=== PATIENT | female | born 1970 | race Caucasian/White ===

== ENCOUNTER → 2017-11-03 | Outpatient (CLI) | payer OTHER ==
--- NOTE | 2017-11-03 09:42 | US ---
EXAMINATION TYPE: US abdomen limited DATE OF EXAM: 11/03/2017 COMPARISON: NONE CLINICAL HISTORY: R10.11 RT Upper Quad Pain. EXAM MEASUREMENTS: Liver Length: 12.1 cm Gallbladder Wall: 0.1 cm CBD: 0.2 cm Right Kidney: 9.2 x 3.8 x 4.1 cm Pancreas: wnl Liver: wnl Gallbladder: wnl Evidence for sonographic Gilmore's sign: No CBD: wnl Right Kidney: wnl IMPRESSION: No distinct abnormality appreciated.
== END | disposition home or self-care (01) ==
LOC: RADUSWWP 08:56
PROVIDERS: ATTEND Family Medicine
DX: R10.11 Right upper quadrant pain (principal)
CPT/HCPCS: 76705

== ENCOUNTER → 2017-12-02 | Outpatient (CLI) | payer OTHER ==
--- NOTE | 2017-12-03 10:03 | MM ---
Reason for exam: screening (asymptomatic). Last mammogram was performed 2 years and 1 month ago. History: Family history of breast cancer in maternal grandmother at age 80, breast cancer in maternal aunt at age 50, and breast cancer in maternal cousin at age 46. Physical Findings: A clinical breast exam by your physician is recommended on an annual basis and results should be correlated with mammographic findings. MG 3D Screening Mammo W/Cad Bilateral CC and MLO view(s) were taken. Prior study comparison: November 02, 2015, mammogram. The breast tissue is heterogeneously dense. This may lower the sensitivity of mammography. There is no discrete abnormality. ASSESSMENT: Negative, BI-RAD 1 RECOMMENDATION: Routine screening mammogram of both breasts in 1 year.
== END | disposition home or self-care (01) ==
LOC: RADMAMWWP 10:05
PROVIDERS: ATTEND Family Medicine
DX: Z12.31 Encounter for screening mammogram for malignant neoplasm of breast (principal)
CPT/HCPCS: 77063; 77067

== ENCOUNTER 2018-02-05 13:27 | Emergency (ER) | payer OTHER ==
[2018-02-05] MEDS ORDERED: ONDANSETRON 4 MG/2 ML VIAL IVP STA (13:44)
[2018-02-05] MEDS ORDERED: RX INFO: IV CONTRAST WAS GIVEN 1 EACH MISC MISCELLANE PRN (13:44)
[2018-02-05] MEDS ORDERED: PANTOPRAZOLE 40 MG/10 ML VIAL IVP STA (13:44)
[2018-02-05] MEDS ORDERED: SODIUM CHLORIDE 0.9% 1,000 ML IV STA ×2 (13:44)
--- NOTE | 2018-02-05 13:48 | ED ---
Abdominal Pain HPI - General Chief Complaint: Abdominal Pain Stated Complaint: abdominal pain Time Seen by Provider: 02/05/18 13:36 Source: patient Mode of arrival: ambulatory Limitations: no limitations - History of Present Illness Initial Comments: This 47-year-old white female presents with a complaint of some abdominal pain. She states that she has had intermittent abdominal pain for the last 3 months. She had a gallbladder ultrasound done 3 months ago which was normal. It became more severe in the last 2 days. He previously was just in the right upper quadrant and now it seems to be diffuse throughout the abdomen. It is associated with some nausea but no vomiting. She denies any actual diarrhea but has had some whitish stools over the past one day. She denies any fevers but has had occasional chills. She states that the pain is significantly resolved at this time but will come in waves. She states that it is very severe when it does occur. She states that when she lays down flat she has a bubbling type of sensation in her chest. She denies any other complaints or modifying factors. She feels somewhat dehydrated. - Related Data Previous Rx's Medication Instructions Recorded Ciprofloxacin HCl [Cipro] 500 mg PO Q12HR #20 tablet 02/05/18 Ondansetron [Zofran ODT] 8 mg PO Q8HR PRN #12 tab 02/05/18 metroNIDAZOLE [Flagyl] 500 mg PO BID #20 tab 02/05/18 traMADol HCl [Ultram] 50 - 100 mg PO Q6H PRN #15 tab 02/05/18 Allergies Allergy/AdvReac Type Severity Reaction Status Date / Time No Known Allergies Allergy Verified 02/05/18 13:59 Review of Systems ROS Statement: Those systems with pertinent positive or pertinent negative responses have been documented in the HPI. ROS Other: All systems not noted in ROS Statement are negative. Past Medical History Past Medical History: No Reported History History of Any Multi-Drug Resistant Organisms: None Reported Past Surgical History: Section, Tubal Ligation Past Psychological History: No Psychological Hx Reported Smoking Status: Never smoker Past Alcohol Use History: None Reported Past Drug Use History: None Reported General Exam - General Exam Comments Initial Comments: GENERAL: The patient is well nourished and well hydrated. VITAL SIGNS: Heart rate, blood pressure, respiratory rate reviewed as recorded in nurse's notes. EYES: Pupils are round and reactive. Extraocular movements are intact. No conjunctival / lid redness or swelling. ENT: No external evidence of injury, swelling, or ecchymosis. Airway is patent. Throat is clear. NECK: Nontender. No swelling or evidence of injury. No subcutaneous emphysema. Trachea is midline. No thyroid mass. HEART: Regular rate and rhythm. Good peripheral pulses. LUNGS/CHEST: Breath sounds clear and equal bilaterally. No rales, rhonchi, or wheezes. No ecchymosis, subcutaneous emphysema, or tenderness. ABDOMEN: There is mild diffuse abdominal tenderness. No palpable masses or organomegaly. No peritoneal signs. No abdominal wall swelling or ecchymosis. EXTREMITIES: No extremity tenderness. Normal muscle tone and function. No thoracolumbar tenderness. NEUROLOGIC: Sensation is grossly intact. Cranial nerve exam reveals face is symmetrical, tongue is midline, speech is clear. SKIN: No abrasions or ecchymosis is noted. No induration or masses noted. PSYCHIATRIC: Alert and oriented. Appropriate behavior and judgment. Limitations: no limitations Course Vital Signs 02/05/18 13:29 Temperature 99.6 F Pulse Rate 104 H Respiratory 20 Rate Blood Pressure 127/71 O2 Sat by Pulse 98 Oximetry Medical Decision Making - Medical Decision Making The patient was seen and examined. All diagnostics were reviewed. She was thoroughly hydrated. She also receives some Protonix and Zofran intravenously. The laboratories reviewed and does show slight elevation of the lipase. She may have a slight pancreatitis and states that she has had occasional pain in the midepigastric region but this is not worse with food intake. The computed tomography scan of the abdomen and pelvis does show evidence of a descending mild colitis. This more likely is the cause of her symptoms. The patient has had this for a fairly prolonged period of time and it is felt as though she may benefit from some antibiotic treatment. In addition, the computed tomography scan did show bilateral small her ovarian cysts. It is felt as though this is less likely the cause of her symptoms. Nevertheless, she appears well on recheck and it is felt as though she is stable for discharge. Gastroenterology referral will be given. - Lab Data Result diagrams: 02/05/18 14:01 02/05/18 14:01 Lab Results 02/05/18 02/05/18 02/05/18 Range/Units 14:01 14:01 14:01 WBC 6.5 (3.8-10.6) k/uL RBC 4.58 (3.80-5.40) m/uL Hgb 13.0 (11.4-16.0) gm/dL Hct 39.9 (34.0-46.0) % MCV 87.1 (80.0-100.0) fL MCH 28.3 (25.0-35.0) pg MCHC 32.5 (31.0-37.0) g/dL RDW 13.0 (11.5-15.5) % Plt Count 198 (150-450) k/uL Neutrophils % 84 % Lymphocytes % 9 % Monocytes % 6 % Eosinophils % 1 % Basophils % 0 % Neutrophils # 5.5 (1.3-7.7) k/uL Lymphocytes # 0.6 L (1.0-4.8) k/uL Monocytes # 0.4 (0-1.0) k/uL Eosinophils # 0.1 (0-0.7) k/uL Basophils # 0.0 (0-0.2) k/uL PT 10.2 (9.0-12.0) sec INR 1.0 (<1.2) APTT 22.5 (22.0-30.0) sec Sodium 141 (137-145) mmol/L Potassium 4.1 (3.5-5.1) mmol/L Chloride 103 (98-107) mmol/L Carbon Dioxide 26 (22-30) mmol/L Anion Gap 12 mmol/L BUN 10 (7-17) mg/dL Creatinine 0.70 (0.52-1.04) mg/dL Est GFR (CKD-EPI)AfAm >90 (>60 ml/min/1.73 sqM) Est GFR (CKD-EPI)NonAf >90 (>60 ml/min/1.73 sqM) Glucose 96 (74-99) mg/dL Calcium 9.3 (8.4-10.2) mg/dL Total Bilirubin 0.4 (0.2-1.3) mg/dL AST 19 (14-36) U/L ALT 30 (9-52) U/L Alkaline Phosphatase 53 (38-126) U/L Total Protein 6.7 (6.3-8.2) g/dL Albumin 4.2 (3.5-5.0) g/dL Amylase 106 (30-110) U/L Lipase 570 H (23-300) U/L Urine Color Urine Appearance (Clear) Urine pH (5.0-8.0) Ur Specific [place] (1.001-1.035) Urine Protein (Negative) Urine Glucose (UA) (Negative) Urine Ketones (Negative) Urine Blood (Negative) Urine Nitrite (Negative) Urine Bilirubin (Negative) Urine Urobilinogen (<2.0) mg/dL Ur Leukocyte Esterase (Negative) 02/05/18 Range/Units 14:11 WBC (3.8-10.6) k/uL RBC (3.80-5.40) m/uL Hgb (11.4-16.0) gm/dL Hct (34.0-46.0) % MCV (80.0-100.0) fL MCH (25.0-35.0) pg MCHC (31.0-37.0) g/dL RDW (11.5-15.5) % Plt Count (150-450) k/uL Neutrophils % % Lymphocytes % % Monocytes % % Eosinophils % % Basophils % % Neutrophils # (1.3-7.7) k/uL Lymphocytes # (1.0-4.8) k/uL Monocytes # (0-1.0) k/uL Eosinophils # (0-0.7) k/uL Basophils # (0-0.2) k/uL PT (9.0-12.0) sec INR (<1.2) APTT (22.0-30.0) sec Sodium (137-145) mmol/L Potassium (3.5-5.1) mmol/L Chloride (98-107) mmol/L Carbon Dioxide (22-30) mmol/L Anion Gap mmol/L BUN (7-17) mg/dL Creatinine (0.52-1.04) mg/dL Est GFR (CKD-EPI)AfAm (>60 ml/min/1.73 sqM) Est GFR (CKD-EPI)NonAf (>60 ml/min/1.73 sqM) Glucose (74-99) mg/dL Calcium (8.4-10.2) mg/dL Total Bilirubin (0.2-1.3) mg/dL AST (14-36) U/L ALT (9-52) U/L Alkaline Phosphatase (38-126) U/L Total Protein (6.3-8.2) g/dL Albumin (3.5-5.0) g/dL Amylase (30-110) U/L Lipase (23-300) U/L Urine Color Yellow Urine Appearance Clear (Clear) Urine pH 5.5 (5.0-8.0) Ur Specific [place] 1.024 (1.001-1.035) Urine Protein Trace H (Negative) Urine Glucose (UA) Negative (Negative) Urine Ketones 3+ H (Negative) Urine Blood Negative (Negative) Urine Nitrite Negative (Negative) Urine Bilirubin Negative (Negative) Urine Urobilinogen <2.0 (<2.0) mg/dL Ur Leukocyte Esterase Negative (Negative) Disposition Clinical Impression: Abdominal pain, Nausea, Colitis, Pancreatitis, Ovarian cyst Disposition: HOME SELF-CARE Condition: Good Instructions: Abdominal Pain (ED), Colitis (ED), Ovarian Cyst (ED), Pancreatitis (ED) Prescriptions: Ciprofloxacin HCl [Cipro] 500 mg PO Q12HR #20 tablet metroNIDAZOLE [Flagyl] 500 mg PO BID #20 tab Ondansetron [Zofran ODT] 8 mg PO Q8HR PRN #12 tab PRN Reason: Nausea traMADol HCl [Ultram] 50 - 100 mg PO Q6H PRN #15 tab PRN Reason: Pain Is patient prescribed a controlled substance at d/c from ED?: Yes If prescribed controlled substance>3 days was MAPS reviewed?: No When asked, does pt state using other controlled substances?: No Referrals: Oumar Ferreira DO [Primary Care Provider] - 1-2 days Arcelia Santos MD [STAFF PHYSICIAN] - 1-2 days Time of Disposition: 15:16
[2018-02-05 14:22] LABS: Basophils % (A) 0 %; Eosinophils # (A) 0.1 k/uL (0-0.7); Eosinophils % (A) 1 %; HCT 39.9 % (34.0-46.0); Lymphocytes # (A) 0.6 k/uL (1.0-4.8); Lymphocytes % (A) 9 %; MCH 28.3 pg (25.0-35.0); MCHC 32.5 g/dL (31.0-37.0); MCV 87.1 fL (80.0-100.0); Mean Platelet Volume 7.2; Monocytes # (A) 0.4 k/uL (0-1.0); Monocytes % (A) 6 %; Neutrophils # (A) 5.5 k/uL (1.3-7.7); Neutrophils % (A) 84 %; Platelet Count 198 k/uL (150-450); RBC 4.58 m/uL (3.80-5.40); WBC 6.5 k/uL (3.8-10.6)
[2018-02-05 14:28] LABS: Partial Thromboplastin Time 22.5 sec (22.0-30.0); Prothrombin Time 10.2 sec (9.0-12.0)
[2018-02-05 14:31] LABS: ALT 30 U/L (9-52); AST 19 U/L (14-36); Albumin 4.2 g/dL (3.5-5.0); Alkaline Phosphatase 53 U/L (38-126); Amylase 106 U/L (30-110); Anion Gap 12 mmol/L; Blood Urea Nitrogen 10 mg/dL (7-17); Calcium 9.3 mg/dL (8.4-10.2); Carbon Dioxide 26 mmol/L (22-30); Chloride 103 mmol/L (98-107); Glucose 96 mg/dL (74-99); Lipase 570 U/L (23-300); Potassium 4.1 mmol/L (3.5-5.1); Sodium 141 mmol/L (137-145); Total Bilirubin 0.4 mg/dL (0.2-1.3); Total Protein 6.7 g/dL (6.3-8.2)
[2018-02-05 14:36] LABS: Appearance,Urine Clear (Clear); Bilirubin,Urine Negative (Negative); Blood,Urine Negative (Negative); Color,Urine Yellow; Glucose,Urine (UA) Negative (Negative); Ketones,Urine 3+ (Negative); Leukocyte Esterase,Urine Negative (Negative); Nitrite,Urine Negative (Negative); PH, Urine 5.5 (5.0-8.0); Protein,Urine Trace (Negative); Specific Gravity,Urine 1.024 (1.001-1.035); Urobilinogen,Urine <2.0 mg/dL (<2.0)
--- NOTE | 2018-02-05 14:57 | CT ---
EXAMINATION TYPE: CT abdomen pelvis w con DATE OF EXAM: 02/05/2018 COMPARISON: NONE INDICATION: Abdominal pain DLP: 1355 mGycm, Automated exposure control for dose reduction was used. CONTRAST: 100 ml mL of Isovue 300. Study performed without Oral Contrast TECHNIQUE: Axial images were obtained from above the diaphragm to the pubic rami in the axial plane a t 5 mm thick sections. Reconstructed images are reviewed on the computer in the coronal plane. FINDINGS: Limited CT sections are obtained the lung bases. The lung bases are clear. CT ABDOMEN: Liver: Normal Spleen: Normal Pancreas: Normal Adrenal glands: The adrenal glands are normal. Gallbladder: Normal Kidneys: No masses are evident. No hydronephrosis is present. No cysts are present. Delayed images were obtained through the kidneys, which remain unremarkable. Aorta: Vascular calcification is within the aorta. Inferior vena cava: Normal. CT PELVIS: Loops of bowel within the abdomen and pelvis are normal. There is diffuse thickening within the d escending colon. Correlate for mild colitis Appendix: Normal as visualized. Urinary bladder: Normal. Genitourinary structures: There is a 1.8 cm cyst on the right ovary. Uterus appears unremarkable. A 2 .0 cm cyst may be on the left ovary. Osseous structures: No suspicious lytic or sclerotic lesions. IMPRESSIONS: 1. Mild wall thickening through the descending colon region. Correlate for mild colitis 2. Bilateral ovarian cysts.
[2018-02-05 15:17] VITALS: BP 113/56; PULSE 82; RESP 18
[2018-02-05 15:44] VITALS: TEMP 98.9
== END 2018-02-05 15:44 | disposition home or self-care (01) ==
LOC: EC 13:27
DX: K52.9 Noninfective gastroenteritis and colitis, unspecified (principal); K85.90 Acute pancreatitis without necrosis or infection, unspecified; N83.201 Unspecified ovarian cyst, right side; N83.202 Unspecified ovarian cyst, left side; Z98.51 Tubal ligation status
CPT/HCPCS: 99284; 96374; 96375; 96361 ×2; 36415; 80053; 82150; 83690; 85025; 85610; 85730; 81003; 74177; J2405; C9113; Q9967

== ENCOUNTER → 2018-02-12 | Outpatient (CLI) | payer OTHER ==
[2018-02-12 14:33] LABS: Basophils % (A) 1 %; Eosinophils # (A) 0.1 k/uL (0-0.7); Eosinophils % (A) 1 %; HGB 14.3 gm/dL (11.4-16.0); Lymphocytes # (A) 2.1 k/uL (1.0-4.8); Lymphocytes % (A) 29 %; MCH 29.5 pg (25.0-35.0); MCHC 34.1 g/dL (31.0-37.0); MCV 86.6 fL (80.0-100.0); Mean Platelet Volume 7.1; Monocytes # (A) 0.4 k/uL (0-1.0); Monocytes % (A) 5 %; Neutrophils # (A) 4.5 k/uL (1.3-7.7); Neutrophils % (A) 62 %; Platelet Count 268 k/uL (150-450); RBC 4.85 m/uL (3.80-5.40); RDW 12.9 % (11.5-15.5); WBC 7.2 k/uL (3.8-10.6)
[2018-02-12 14:41] LABS: ALT 35 U/L (9-52); AST 25 U/L (14-36); Albumin 4.4 g/dL (3.5-5.0); Alkaline Phosphatase 49 U/L (38-126); Amylase 84 U/L (30-110); Anion Gap 14 mmol/L; Blood Urea Nitrogen 13 mg/dL (7-17); Calcium 9.7 mg/dL (8.4-10.2); Carbon Dioxide 24 mmol/L (22-30); Chloride 103 mmol/L (98-107); Cholesterol 145 mg/dL (<200); Glucose 86 mg/dL (74-99); HDL Cholesterol 58 mg/dL (40-60); LDL Cholesterol,Calculated 69 mg/dL (0-99); Lipase 254 U/L (23-300); Potassium 4.6 mmol/L (3.5-5.1); Sodium 141 mmol/L (137-145); Total Bilirubin 0.5 mg/dL (0.2-1.3); Triglycerides 91 mg/dL (<150)
[2018-02-12 16:27] LABS: Erythrocyte Sedimentation Rate 8 mm/hr (0-20)
== END | disposition home or self-care (01) ==
LOC: LABWHC1 13:44
PROVIDERS: ATTEND Family Medicine
DX: E78.4 Other hyperlipidemia (principal); R10.30 Lower abdominal pain, unspecified
CPT/HCPCS: 36415; 80053; 80061; 82150; 83690; 85025; 85652

== ENCOUNTER → 2018-04-25 | Outpatient (CLI) | payer OTHER ==
--- NOTE | 2018-04-25 15:42 | XR ---
EXAMINATION TYPE: XR foot complete RT DATE OF EXAM: 04/25/2018 CLINICAL HISTORY: Neuropathy per order. Visible bump with pain and swelling. TECHNIQUE: Frontal, lateral, and oblique images of the left foot are obtained. COMPARISON: None FINDINGS: There is no acute fracture/dislocation evident in the left foot. The joint spaces in the left foot appear within normal limits. Moderate size inferior calcaneal spur is present . Mild diffus e subcutaneous edema is seen in the overlying soft tissue plantar and lateral aspects. IMPRESSION: As above. Consider MRI to further evaluate soft tissue mass.
== END | disposition home or self-care (01) ==
LOC: RADXRMAIN 14:29
PROVIDERS: ATTEND Family Medicine
DX: M77.31 Calcaneal spur, right foot (principal); R60.0 Localized edema; G62.9 Polyneuropathy, unspecified

== ENCOUNTER → 2018-09-25 | Outpatient (CLI) | payer OTHER ==
[2018-09-25 17:44] LABS: Progesterone 0.5 ng/mL
[2018-09-25 21:31] LABS: ACTH 19.8 pg/mL (0.00-45.99)
== END | disposition home or self-care (01) ==
LOC: LABWHC1 08:59
PROVIDERS: ATTEND Family Medicine
DX: N64.52 Nipple discharge (principal)
CPT/HCPCS: 36415; 82024; 82533; 82672; 83001; 83002; 84144; 84443

== ENCOUNTER → 2019-01-26 | Outpatient (CLI) | payer BC ==
--- NOTE | 2019-01-27 09:11 | MM ---
Reason for exam: screening (asymptomatic). Last mammogram was performed 1 year and 2 months ago. History: Family history of breast cancer in maternal grandmother at age 80, breast cancer in maternal aunt at age 50, and breast cancer in maternal cousin at age 46. Physical Findings: A clinical breast exam by your physician is recommended on an annual basis and results should be correlated with mammographic findings. MG 3D Screening Mammo W/Cad Bilateral CC and MLO view(s) were taken. Prior study comparison: December 02, 2017, bilateral MG 3d screening mammo w/cad. November 02, 2015, mammogram. The breast tissue is heterogeneously dense. This may lower the sensitivity of mammography. Finding: There are vascular calcifications in the upper outer quadrant, posterior position of both breasts. There is no discrete abnormality. ASSESSMENT: Benign, BI-RAD 2 RECOMMENDATION: Routine screening mammogram of both breasts in 1 year.
== END | disposition home or self-care (01) ==
LOC: RADMAMWWP 10:46
PROVIDERS: ATTEND Family Medicine
DX: Z12.31 Encounter for screening mammogram for malignant neoplasm of breast (principal)
CPT/HCPCS: 77063; 77067

== ENCOUNTER → 2019-01-27 | Outpatient (CLI) | payer BC ==
[2019-01-27 09:43] LABS: Basophils # (A) 0.1 k/uL (0-0.2); Basophils % (A) 1 %; Eosinophils # (A) 0.1 k/uL (0-0.7); Eosinophils % (A) 2 %; HCT 42.8 % (34.0-46.0); HGB 13.7 gm/dL (11.4-16.0); Lymphocytes # (A) 1.4 k/uL (1.0-4.8); Lymphocytes % (A) 22 %; MCH 28.9 pg (25.0-35.0); MCHC 32.1 g/dL (31.0-37.0); MCV 90.1 fL (80.0-100.0); Mean Platelet Volume 6.9; Monocytes # (A) 0.3 k/uL (0-1.0); Monocytes % (A) 5 %; Neutrophils # (A) 4.6 k/uL (1.3-7.7); Neutrophils % (A) 70 %; Platelet Count 219 k/uL (150-450); RBC 4.74 m/uL (3.80-5.40); RDW 13.3 % (11.5-15.5); WBC 6.6 k/uL (3.8-10.6)
[2019-01-27 11:46] LABS: Erythrocyte Sedimentation Rate 8 mm/hr (0-20)
[2019-01-27 18:09] LABS: Albumin 4.4 g/dL (3.80-4.90); Anion Gap 8.5 mmol/L (4.00-12.00); C Reactive Protein 0.8 mg/dL (0.0-0.8); Calcium 9.4 mg/dL (8.7-10.3); Carbon Dioxide 24.5 mmol/L (21.6-31.8); Globulin 2.2 g/dL (1.6-3.3); Potassium 4.4 mmol/L (3.5-5.5); Total Bilirubin 0.6 mg/dL (0.3-1.2); Total Protein 6.6 g/dL (6.2-8.2)
[2019-01-27 18:16] LABS: T4, Free (Free Thyroxine) 1.1 ng/dL (0.80-1.80)
== END | disposition home or self-care (01) ==
LOC: LABWHC1 08:57
PROVIDERS: ATTEND Family Medicine
DX: Z00.00 Encounter for general adult medical examination without abnormal findings (principal); R19.4 Change in bowel habit; R10.11 Right upper quadrant pain
CPT/HCPCS: 36415; 80053; 80061; 83516; 84439; 84443; 85025; 85652; 86140

== ENCOUNTER 2019-09-25 12:28 | Observation (INO) | payer BC ==
[2019-09-25] MEDS ORDERED: SODIUM CHLORIDE 0.9% 1,000 ML IV STA (12:47)
--- NOTE | 2019-09-25 12:51 | ED ---
General Adult HPI - General Chief complaint: Neuro Symptoms/Deficit Stated complaint: Memory loss Time Seen by Provider: 09/25/19 12:39 Source: patient, RN notes reviewed, old records reviewed Mode of arrival: ambulatory Limitations: no limitations - History of Present Illness Initial comments: 49-year-old female presents for evaluation of confusion, and altered consciousness. Patient awoke this morning at 0 920 she attempted to use a computer but could not manipulate the device. She had looked on her Facebook page and was confused by the people or friends. Her states these are close friends and that not knowing the names is abnormal. Patient has no chronic medical conditions, no hypertension, no diabetes, no hyperlipidemia. She is family history of CVA. No seizure disorder reported. She feels normal at the time my evaluation she is alert and oriented. No complaints. - Related Data Previous Rx's Medication Instructions Recorded Ciprofloxacin HCl [Cipro] 500 mg PO Q12HR #20 tablet 02/05/18 Ondansetron [Zofran ODT] 8 mg PO Q8HR PRN #12 tab 02/05/18 metroNIDAZOLE [Flagyl] 500 mg PO BID #20 tab 02/05/18 traMADol HCl [Ultram] 50 - 100 mg PO Q6H PRN #15 tab 02/05/18 Allergies Allergy/AdvReac Type Severity Reaction Status Date / Time No Known Allergies Allergy Verified 09/25/19 12:37 Review of Systems ROS Statement: Those systems with pertinent positive or pertinent negative responses have been documented in the HPI. ROS Other: All systems not noted in ROS Statement are negative. Past Medical History Past Medical History: No Reported History History of Any Multi-Drug Resistant Organisms: None Reported Past Surgical History: Section, Tubal Ligation Past Psychological History: No Psychological Hx Reported Smoking Status: Never smoker Past Alcohol Use History: None Reported Past Drug Use History: None Reported General Exam Limitations: no limitations General appearance: alert, in no apparent distress Head exam: Present: atraumatic, normocephalic Eye exam: Present: normal appearance, PERRL, EOMI ENT exam: Present: normal exam Neck exam: Present: normal inspection. Absent: tenderness, meningismus Respiratory exam: Present: normal lung sounds bilaterally. Absent: respiratory distress, wheezes, rales Cardiovascular Exam: Present: regular rate, normal rhythm GI/Abdominal exam: Present: soft. Absent: distended, tenderness, guarding Extremities exam: Present: normal inspection, normal capillary refill. Absent: pedal edema Back exam: Present: normal inspection Neurological exam: Present: alert, oriented X3, CN II-XII intact, normal gait, other (no ataxia, normal [id number] bilaterally, normal [id number], negative Romberg). Absent: motor sensory deficit Psychiatric exam: Present: normal affect, normal mood Skin exam: Present: warm, dry, intact. Absent: cyanosis, diaphoretic Course Vital Signs 09/25/19 09/25/19 12:34 14:50 Temperature 98.8 F Pulse Rate 93 83 Respiratory 18 18 Rate Blood Pressure 115/80 125/71 O2 Sat by Pulse 98 100 Oximetry EKG Findings - EKG Comments: EKG Findings:: EKG: Normal sinus rhythm, sinus arrhythmia, rate is 72, MI interval 144, QRS duration 78, QTC 396, no ischemic changes, no ST segment elevation. Medical Decision Making - Medical Decision Making 49-year-old female otherwise healthy presenting with an episode of confusion, word finding difficulty, inability recognize well-known relations. Patient is returned to baseline with a normal exam, evaluation. Head CT is performed negative for intracranial hemorrhage or mass effect. She has normal electrolytes, normal labs in general. Chest x-ray negative for any acute cardiac primary disease. Patient's symptoms are concerning for TIA, will be kept in observation for further testing, and neurology consultation. Case discussed with admitting physician Dr. Curiel - Lab Data Result diagrams: 09/25/19 12:58 09/25/19 12:58 Lab Results 09/25/19 09/25/19 09/25/19 Range/Units 12:58 12:58 12:58 WBC 8.6 (3.8-10.6) k/uL RBC 4.97 (3.80-5.40) m/uL Hgb 14.6 (11.4-16.0) gm/dL Hct 44.4 (34.0-46.0) % MCV 89.3 (80.0-100.0) fL MCH 29.3 (25.0-35.0) pg MCHC 32.8 (31.0-37.0) g/dL RDW 12.8 (11.5-15.5) % Plt Count 252 (150-450) k/uL Neutrophils % 67 % Lymphocytes % 24 % Monocytes % 6 % Eosinophils % 2 % Basophils % 1 % Neutrophils # 5.7 (1.3-7.7) k/uL Lymphocytes # 2.0 (1.0-4.8) k/uL Monocytes # 0.5 (0-1.0) k/uL Eosinophils # 0.2 (0-0.7) k/uL Basophils # 0.0 (0-0.2) k/uL PT 9.8 (9.0-12.0) sec INR 0.9 (<1.2) APTT 24.3 (22.0-30.0) sec Sodium 139 (137-145) mmol/L Potassium 4.3 (3.5-5.1) mmol/L Chloride 104 (98-107) mmol/L Carbon Dioxide 24 (22-30) mmol/L Anion Gap 11 mmol/L BUN 11 (7-17) mg/dL Creatinine 0.73 (0.52-1.04) mg/dL Est GFR (CKD-EPI)AfAm >90 (>60 ml/min/1.73 sqM) Est GFR (CKD-EPI)NonAf >90 (>60 ml/min/1.73 sqM) Glucose 100 H (74-99) mg/dL Calcium 9.8 (8.4-10.2) mg/dL Total Bilirubin 0.7 (0.2-1.3) mg/dL AST 28 (14-36) U/L ALT 25 (4-34) U/L Alkaline Phosphatase 45 (38-126) U/L Troponin I (0.000-0.034) ng/mL Total Protein 8.0 (6.3-8.2) g/dL Albumin 4.8 (3.5-5.0) g/dL Urine Color Urine Appearance (Clear) Urine pH (5.0-8.0) Ur Specific [place] (1.001-1.035) Urine Protein (Negative) Urine Glucose (UA) (Negative) Urine Ketones (Negative) Urine Blood (Negative) Urine Nitrite (Negative) Urine Bilirubin (Negative) Urine Urobilinogen (<2.0) mg/dL Ur Leukocyte Esterase (Negative) Urine WBC (0-5) /hpf Ur Squamous Epith Cells (0-4) /hpf Urine Bacteria (None) /hpf Urine Mucus (None) /hpf 09/25/19 09/25/19 Range/Units 12:58 12:58 WBC (3.8-10.6) k/uL RBC (3.80-5.40) m/uL Hgb (11.4-16.0) gm/dL Hct (34.0-46.0) % MCV (80.0-100.0) fL MCH (25.0-35.0) pg MCHC (31.0-37.0) g/dL RDW (11.5-15.5) % Plt Count (150-450) k/uL Neutrophils % % Lymphocytes % % Monocytes % % Eosinophils % % Basophils % % Neutrophils # (1.3-7.7) k/uL Lymphocytes # (1.0-4.8) k/uL Monocytes # (0-1.0) k/uL Eosinophils # (0-0.7) k/uL Basophils # (0-0.2) k/uL PT (9.0-12.0) sec INR (<1.2) APTT (22.0-30.0) sec Sodium (137-145) mmol/L Potassium (3.5-5.1) mmol/L Chloride (98-107) mmol/L Carbon Dioxide (22-30) mmol/L Anion Gap mmol/L BUN (7-17) mg/dL Creatinine (0.52-1.04) mg/dL Est GFR (CKD-EPI)AfAm (>60 ml/min/1.73 sqM) Est GFR (CKD-EPI)NonAf (>60 ml/min/1.73 sqM) Glucose (74-99) mg/dL Calcium (8.4-10.2) mg/dL Total Bilirubin (0.2-1.3) mg/dL AST (14-36) U/L ALT (4-34) U/L Alkaline Phosphatase (38-126) U/L Troponin I <0.012 (0.000-0.034) ng/mL Total Protein (6.3-8.2) g/dL Albumin (3.5-5.0) g/dL Urine Color Light Yellow Urine Appearance Cloudy H (Clear) Urine pH 5.5 (5.0-8.0) Ur Specific [place] 1.012 (1.001-1.035) Urine Protein Negative (Negative) Urine Glucose (UA) Negative (Negative) Urine Ketones Negative (Negative) Urine Blood Negative (Negative) Urine Nitrite Negative (Negative) Urine Bilirubin Negative (Negative) Urine Urobilinogen <2.0 (<2.0) mg/dL Ur Leukocyte Esterase Negative (Negative) Urine WBC <1 (0-5) /hpf Ur Squamous Epith Cells 5 H (0-4) /hpf Urine Bacteria Rare H (None) /hpf Urine Mucus Rare H (None) /hpf Disposition Clinical Impression: Transient cerebral ischemia Disposition: ADMITTED IP TO THIS HOSP Condition: Stable Is patient prescribed a controlled substance at d/c from ED?: No Referrals: Lyndon Clinton DO [Primary Care Provider] - 1-2 days Decision to Admit Reason: Admit from EC Decision Date: 09/25/19 Decision Time: 15:09
[2019-09-25 13:24] LABS: Basophils % (A) 1 %; Eosinophils # (A) 0.2 k/uL (0-0.7); Eosinophils % (A) 2 %; HCT 44.4 % (34.0-46.0); HGB 14.6 gm/dL (11.4-16.0); Lymphocytes % (A) 24 %; MCH 29.3 pg (25.0-35.0); MCHC 32.8 g/dL (31.0-37.0); MCV 89.3 fL (80.0-100.0); Mean Platelet Volume 7.4; Monocytes # (A) 0.5 k/uL (0-1.0); Monocytes % (A) 6 %; Neutrophils # (A) 5.7 k/uL (1.3-7.7); Neutrophils % (A) 67 %; Platelet Count 252 k/uL (150-450); RBC 4.97 m/uL (3.80-5.40); RDW 12.8 % (11.5-15.5); WBC 8.6 k/uL (3.8-10.6)
[2019-09-25 13:25] LABS: Appearance,Urine Cloudy (Clear); Bacteria,Urine Rare /hpf; Bilirubin,Urine Negative (Negative); Blood,Urine Negative (Negative); Color,Urine Light Yellow; Glucose,Urine (UA) Negative (Negative); Ketones,Urine Negative (Negative); Leukocyte Esterase,Urine Negative (Negative); Mucus,Urine Rare /hpf; Nitrite,Urine Negative (Negative); PH, Urine 5.5 (5.0-8.0); Protein,Urine Negative (Negative); Specific Gravity,Urine 1.012 (1.001-1.035); Squamous Epithelial Cell,Urine 5 /hpf (0-4); Urobilinogen,Urine <2.0 mg/dL (<2.0); WBC,Urine <1 /hpf (0-5)
[2019-09-25 13:34] LABS: INR 0.9 (<1.2); Partial Thromboplastin Time 24.3 sec (22.0-30.0); Prothrombin Time 9.8 sec (9.0-12.0)
[2019-09-25 13:35] LABS: African American GFR (CKD) >90 (>60 ml/min/1.73 sqM); Albumin 4.8 g/dL (3.5-5.0); Anion Gap 11 mmol/L; Blood Urea Nitrogen 11 mg/dL (7-17); Calcium 9.8 mg/dL (8.4-10.2); Carbon Dioxide 24 mmol/L (22-30); Chloride 104 mmol/L (98-107); Glucose 100 mg/dL (74-99); Non-African American GFR(CKD) >90 (>60 ml/min/1.73 sqM); Sodium 139 mmol/L (137-145); Total Bilirubin 0.7 mg/dL (0.2-1.3)
[2019-09-25 13:36] LABS: ALT 25 U/L (4-34); AST 28 U/L (14-36); Alkaline Phosphatase 45 U/L (38-126); Potassium 4.3 mmol/L (3.5-5.1)
--- NOTE | 2019-09-25 13:55 | CT ---
EXAMINATION TYPE: CT brain wo con DATE OF EXAM: 09/25/2019 COMPARISON: NONE HISTORY: Memory loss CT DLP: 1048.4 mGycm Automated exposure control for dose reduction was used. FINDINGS: Central structures are midline. There is no evidence of hydrocephalus. No acute focal lesion, mass ef fect or midline shift is seen. I do not see evidence of intracranial blood. Visualized portions of the paranasal sinuses and mastoids are clear. There is an exostosis seen arisi ng from the posterior right occipital region. IMPRESSION: NO ACUTE INTRACRANIAL ABNORMALITY.
[2019-09-25] MEDS ORDERED: ASPIRIN 325 MG TAB PO STA (14:32)
--- NOTE | 2019-09-25 14:32 | XR ---
EXAMINATION TYPE: XR chest 2V DATE OF EXAM: 09/25/2019 HISTORY: altered mental status. REFERENCE: NONE. FINDINGS: The lungs are clear. Pleural spaces are clear. The heart is not enlarged. There is a dextro scoliosis in the thoracic spine. IMPRESSION: NO ACUTE INTRATHORACIC ABNORMALITY.
[2019-09-25] MEDS ORDERED: LORazepam 2 MG/ML INJ IV PRN (15:07)
[2019-09-25] MEDS ORDERED: SODIUM CHLORIDE 0.9% 1,000 ML IV SCH (15:15)
[2019-09-25] MEDS: ACETAMINOPHEN TAB 325 MG TAB PO PRN (17:39)
[2019-09-26 06:26] LABS: Cholesterol 190 mg/dL (<200); HDL Cholesterol 51 mg/dL (40-60); LDL Cholesterol,Calculated 96 mg/dL (0-99); Triglycerides 213 mg/dL (<150)
[2019-09-26] MEDS: ASPIRIN 325 MG TAB PO SCH (08:33)
--- NOTE | 2019-09-26 08:41 | P.HPIM ---
History of Present Illness this is a pleasant 49 years old female with no past medical history other than tubal ligation, never smoked. She presents with one of our episodes of nausea and inability to eat and recognize names. Patient was helping her finding his check in her tablets yesterday when she found out she could not reports and when she went to the patient spoke she could not recognize her friends and family, although she knew the feces but she could not treat to remember the names. She got emotional and followed by a headache about 4-5/10 in severity and the back of her head felt like pressure with no visual difficulty, no slurred speech, no weakness or loss of sensation. Patient states at age 22 when she had her baby. She had similar episodes. Patient denies smoking, alcohol or illicit tracts vitals stable. Labs including CBC, BMP, liver enzymes are unremarkable. Troponin is negative.urine analysis is not suspicious of infection. Chest x- ray: No acute process. EKG showing normal sinus rhythm at [address] no [address]an t ST-T changes . CT of the brain: No acute process on admission patient was started on aspirin 325 mg daily and she received a bolus of 1 L of normal saline. Review of Systems CONSTITUTIONAL: No fever, no malaise, no fatigue. HEENT: No recent visual problems or hearing problems. Denied any sore throat. CARDIOVASCULAR: No orthopnea, PND, no palpitations, no syncope. PULMONARY: No shortness of breath, no cough, no hemoptysis. GASTROINTESTINAL: No diarrhea, no nausea, no vomiting, no abdominal pain. Normoactive bowel sounds. NEUROLOGICAL: No headaches, no weakness, no numbness. HEMATOLOGICAL: Denies any bleeding or petechiae. GENITOURINARY: Denies any burning micturition, frequency, or urgency. MUSCULOSKELETAL/RHEUMATOLOGICAL: Denies any joint pain, swelling, or any muscle pain. ENDOCRINE: Denies any polyuria or polydipsia. Past Medical History Past Medical History: No Reported History History of Any Multi-Drug Resistant Organisms: None Reported Past Surgical History: Section, Tubal Ligation Past Psychological History: No Psychological Hx Reported Smoking Status: Never smoker Past Alcohol Use History: None Reported Past Drug Use History: None Reported - Past Family History Mother Family Medical History: Dementia, Diabetes Mellitus Father Family Medical History: CVA/TIA, Diabetes Mellitus, Myocardial Infarction ([place]) Additional Family Medical History / Comment(s): glaucoma Medications and Allergies Home Medications Medication Instructions Recorded Confirmed Type Cider Vinegar [Apple Cider Vinegar] 300 mg PO DAILY 09/25/19 09/25/19 History Allergies Allergy/AdvReac Type Severity Reaction Status Date / Time No Known Allergies Allergy Verified 09/25/19 16:29 Physical Exam Vitals: Vital Signs Temp Pulse Pulse Resp BP BP Pulse Ox 09/26/19 03:48 98.3 F 65 14 119/80 99 09/26/19 03:47 70 16 09/26/19 00:00 98.1 F 70 16 120/77 100 09/25/19 20:00 98.4 F 95 18 115/59 98 09/25/19 17:35 98.0 F 76 16 108/62 98 09/25/19 17:08 98.8 F 89 18 122/74 100 09/25/19 14:50 83 18 125/71 100 09/25/19 12:34 98.8 F 93 18 115/80 98 Intake and Output 09/25/19 09/25/19 09/26/19 14:59 22:59 06:59 Intake Total 1240 120 Output Total 450 Balance 790 120 Intake: Intake, IV Titration 1000 Amount Sodium Chloride 0.9% 1, 1000 000 ml @ 999 mls/hr IV . Q1H1M STA Rx#:[id number] Oral 240 120 Output: Urine 450 Other: Voiding Method Toilet Toilet # Voids 1 2 Weight 74.933 kg 74.933 kg 74.9 kg GENERAL: The patient is alert and oriented x3, not in any acute distress. Well developed, well nourished. HEENT: Pupils are round and equally reacting to light. EOMI. No scleral icterus. No conjunctival pallor. Normocephalic, atraumatic. No pharyngeal erythema. No thyromegaly. CARDIOVASCULAR: S1 and S2 present. No murmurs, rubs, or gallops. PULMONARY: Chest is clear to auscultation, no wheezing or crackles. ABDOMEN: Soft, nontender, nondistended, normoactive bowel sounds. No palpable organomegaly. MUSCULOSKELETAL: No joint swelling or deformity. EXTREMITIES: No cyanosis, clubbing, or pedal edema. NEUROLOGICAL: Gross neurological examination did not reveal any focal deficits. SKIN: No rashes. No petechiae Results CBC & Chem 7: 09/25/19 12:58 12 12:58 Labs: Abnormal Lab Results - Last 24 Hours (Table) 09/25/19 12 Range/Units 12:58 12:58 Glucose 100 H (74-99) mg/dL Urine Appearance Cloudy H (Clear) Ur Squamous Epith Cells 5 H (0-4) /hpf Urine Bacteria Rare H (None) /hpf Urine Mucus Rare H (None) /hpf Thrombosis Risk Factor Assmnt - Choose All That Apply Any of the Below Risk Factors Present?: Yes Each Factor Represents 1 point: Age 41-60 years Other Risk Factors: No Other congenital or acquired thrombophilia - If yes, enter type in comment: No Thrombosis Risk Factor Assessment Total Risk Factor Score: 1 Thrombosis Risk Factor Assessment Level: Low Risk Assessment and Plan Assessment: possible TIA versus other History of tubal ligation Headache Plan: this is a pleasant 49 years old female who presents with TIA. Continue with aspirin. Continue with neuro check. Check echocardiogram, carotid duplex. Call neurology consults Labs and medication were reviewed.. Continue same treatment. Continue with symptomatic treatment. Resume home medication. Monitor lytes and vitals. DVT and GI prophylaxis. Further recommendations of the clinical course of the patient DVT prophylaxis: Subcutaneous heparin GI Prophylaxis: Pepcid PT/OT: Pending Prognosis is guarded
--- NOTE | 2019-09-26 09:04 | US ---
EXAMINATION TYPE: US carotid duplex BILAT DATE OF EXAM: 09/26/2019 COMPARISON: NONE CLINICAL HISTORY: Stenosis. Pt states episode of confusion EXAM MEASUREMENTS: RIGHT: Peak Systolic Velocity (PSV) cm/sec ----- Right CCA: 86.7 ----- Right ICA: 99.5 ----- Right ECA: 86.7 ICA/CCA ratio: 1.1 RIGHT: End Diastole cm/sec ----- Right CCA: 25.2 ----- Right ICA: 45.2 ----- Right ECA: 16.4 LEFT: Peak Systolic Velocity (PSV) cm/sec ----- Left CCA: 73.5 ----- Left ICA: 80.1 ----- Left ECA: 68.0 ICA/CCA ratio: 1.1 LEFT: End Diastole cm/sec ----- Left CCA: 27.4 ----- Left ICA: 35.1 ----- Left ECA: 16.4 VERTEBRALS (direction of flow): Right Vertebral: Antegrade Left Vertebral: Antegrade Rhythm: Normal No significant stenosis seen IMPRESSION: I DO NOT SEE EVIDENCE OF A HEMODYNAMICALLY SIGNIFICANT STENOSIS IN EITHER CAROTID SYSTEM. Criteria for Assigning % of Stenosis / Diameter reduction (Estimation based on the indirect measurements of the internal carotid artery velocities (ICA PSV). 1. Normal (no stenosis)=ICA PSV < 125 cm/s: ratio < 2.0: ICA EDV<40 cm/s. 2. Less than 50% stenosis=ICA PSV < 125 cm/s: ratio < 2.0: ICA EDV<40 cm/s. 3. 50 to 69% stenosis=ICA PSV of 125 to 230 cm/s: ration 2.0 ? 4.0: ICA EDV 40-100 cm/s. 4. Greater than 70% stenosis to near occlusion= ICA PSV > 230 cm/s: ratio > 4.0: ICA EDV > 100 cm/s. 5. Near occlusion= ICA PSV velocities may be low or undetectable: variable ratio and ICA EDV. 6. Total occlusion=unable to detect flow.
--- NOTE | 2019-09-26 10:07 | P.CNNES ---
History of Present Illness Consult date: 09/26/19 Reason for Consult: TIA Chief complaint: confusion History of Present Illness: Ms. Bobbi Castillo is a 49-year-old female who is seen in neurologic consultation on September 26, 2019, via teleneurology. Ms. Castillo reports awakening yesterday morning and signing onto her tablet, to check on her bank account. She reports that she was able to sign onto the tablet without difficulty. She was able to get to the bank account. She then noted difficulty recognizing words. She then went to her Facebook account and thought that she had been hacked. She did not recognize the names of the people were listed as her friends. She pointed this out to her . He looked at her Facebook account and advised her that all of these people she was not recognizing were actually friends of hers. Patient's clicked on pictures of people and she didn't recognize them. She did not recall their names. She says she and her worked on this for an hour or so, she then went to take a shower. After she got out of the shower she felt as if she was back to normal. Patient denied any difficulty with speech, weakness and numbness in extremities, loss of vision and ataxia related to this event. There was no reported facial asymmetry. Patient says she did know her 's name and the names of her children. Patient reports having 1 episode similar to this approximate 28 years ago, after the of her daughter. She was very sleep deprived. She attempted to call her mother on the phone, however could not remember her mother's number. Review of Systems All systems: negative (intentional weight loss) Constitutional: Reports weight loss Eyes: denies blurred vision, denies pain Ears, nose, mouth and throat: Denies headache, Denies sore throat Past Medical History Past Medical History: No Reported History History of Any Multi-Drug Resistant Organisms: None Reported Past Surgical History: Section, Tubal Ligation Past Psychological History: No Psychological Hx Reported Smoking Status: Never smoker Past Alcohol Use History: None Reported Past Drug Use History: None Reported - Past Family History Mother Family Medical History: Dementia, Diabetes Mellitus Father Family Medical History: CVA/TIA, Diabetes Mellitus, Myocardial Infarction ([place]) Additional Family Medical History / Comment(s): glaucoma Medications and Allergies Home Medications Medication Instructions Recorded Confirmed Type Cider Vinegar [Apple Cider Vinegar] 300 mg PO DAILY 09/25/19 09/25/19 History Allergies Allergy/AdvReac Type Severity Reaction Status Date / Time No Known Allergies Allergy Verified 09/25/19 16:29 Physical Examination - Vital Signs Vital Signs: Vital Signs Temp Pulse Pulse Resp BP BP Pulse Ox 09/26/19 03:48 98.3 F 65 14 119/80 99 09/26/19 03:47 70 16 09/26/19 00:00 98.1 F 70 16 120/77 100 09/25/19 20:00 98.4 F 95 18 115/59 98 09/25/19 17:35 98.0 F 76 16 108/62 98 09/25/19 17:08 98.8 F 89 18 122/74 100 09/25/19 14:50 83 18 125/71 100 09/25/19 12:34 98.8 F 93 18 115/80 98 Intake and Output 09/25/19 09/26/19 09/26/19 22:59 06:59 14:59 Intake Total 1240 120 120 Output Total 450 Balance 790 120 120 Intake: Intake, IV Titration 1000 Amount Sodium Chloride 0.9% 1, 1000 000 ml @ 999 mls/hr IV . Q1H1M STA Rx#:[id number] Oral 240 120 120 Output: Urine 450 Other: Voiding Method Toilet Toilet # Voids 1 2 0 Weight 74.933 kg 74.9 kg Gen.: The patient is well-nourished, well-developed. She is seated in the bed. She is no acute distress. HEENT: Head is atraumatic, normocephalic. Fundus not visualized. There is no scleral icterus. Mucous members are moist. Neck: Supple without carotid bruits. Heart: Regular rate and rhythm. Extremities: Without edema Neurological examination Mental status: The patient is awake, alert and oriented 3. Her speech is clear. There is no anomia or dysarthria. Cranial nerves: Pupils are equal, round and reactive to light. Visual fan are full to confrontation. Extra Muscles are intact. There is no nystagmus. Facial sensation is intact. There is no facial asymmetry. Hearing is intact. Uvula and palate are midline. Shoulder shrug is symmetric. Tongue protrudes midline. Motor: Strength is 5/5 throughout. Sensation: Intact to light touch. Coordination: Intact. There is no dysmetria or dysdiadochokinesia. Finger nose finger testing is well performed. Deep tendon reflexes: 2+/4+ throughout Gait: Not assessed Results - Laboratory Findings CBC and BMP: 09/25/19 12:58 09/25/19 12:58 Abnormal Lab Findings: Abnormal Labs 09/25/19 09/25/19 09/26/19 12:58 12:58 05:25 Glucose 100 H Triglycerides 213 H Urine Appearance Cloudy H Ur Squamous Epith Cells 5 H Urine Bacteria Rare H Urine Mucus Rare H Assessment and Plan Assessment: Impressions: 1) 49-year-old healthy female with episode of confusion, specifically, recognizing names of people she knows. CT scan of the brain was negative for acute infarction or hemorrhage. These symptoms are not classic for cerebral ischemia Plan: Plan: 1) MRI of the brain 2) aspirin 81 mg 3) 2-D echocardiogram 4) carotid Doppler 5) continue exercise and weight loss 6) elevated triglycerides, would start statin to reduce stroke risk I will be off service tomorrow. Dr. Brewer will take over. Time with Patient: Greater than 30 (patient was seen via teleneurology)
[2019-09-26] MEDS: ACETAMINOPHEN TAB 325 MG TAB PO PRN (13:48)
[2019-09-27] MEDS: ASPIRIN 325 MG TAB PO SCH (08:19)
[2019-09-27] MEDS ORDERED: LORazepam 2 MG/ML INJ IV PRN (10:08)
[2019-09-27 10:55] VITALS: RESP 20; TEMP 98.2
--- NOTE | 2019-09-27 11:18 | MR ---
EXAMINATION TYPE: MR brain wo con DATE OF EXAM: 09/27/2019 COMPARISON: CT brain dated 09/25/2019 HISTORY: Neuro deficit, acute stroke suspected, TIA TECHNIQUE: Multiplanar, multisequence images of the brain and brainstem is performed without intravenous contras t. FINDINGS: Diffusion weighted images demonstrate no evidence of a recent infarct or other diffusion ab normality. There is no extra-axial fluid collection. The ventricular system and cisternal spaces are normal in size and appearance. There are scattered foci of nonspecific white matter change demonstra moy as T2/FLAIR hyperintensity predominating within the deep white matter. There are at least 6 foci measuring up to 4 x 2 mm on the left and 5 foci on the right. The brain volume is age appropriate. Midline structures demonstrate normal morphology. The craniocervical junction appears within normal limits. Post contrast images demonstrate no abnormal enhancement. The dural venous sinuses appear pa tent. The visualized sinuses are clear and the globes are intact. Mild nasal septal deviation to the right. IMPRESSION: 1. No acute infarct, midline shift or mass effect. 2. Mild burden nonspecific white matter change. Foci are predominately located in the deep white javy er, which would be atypical for demyelinating disease. Vasculitis or sequela of chronic microangiopat hy are primary considerations.
[2019-09-27 12:39] VITALS: BP 84/51; PULSE 89
--- NOTE | 2019-09-27 15:07 | P.DS ---
Providers Date of admission: 09/27/19 08:23 Expected date of discharge: 09/27/19 Attending physician: Luis Felipe Curiel MD Consults: 09/25/19 15:05 Consult Physician Routine Consulting Provider: Ely Romano Consult Reason/Comments: TIA Do you want consulting provider notified?: Yes Primary care physician: Lyndon Clinton Hospital Course: Final diagnosis possible TIA versus other History of tubal ligation Headache Discharge disposition Patient is being discharged in a stable condition with guarded prognosis to home and will follow-up with Dr. Clinton in the outpatient setting upon discharge. Patient will also follow-up with neurology Dr. Harrison an appointment has been made for next week. Total time taken is 35 minutes. History of present illness 41-year-old female was recently admitted for an inability to recognize names and close family members and friends and was being closely monitored. Patient states that the episode happened after waking up and memory loss subsided approximately 1 hour later. No other neurological deficits noted. Neurology was consulted. During hospitalization patient had an CT of the brain showing no acute process. An MRI of the brain showing no acute infarct, midline shift, or mass effect with mild burden nonspecific white matter changes. Carotid Doppler done showing no evidence of stenosis in either carotid system. Symptoms of memory loss have subsided and patient currently denies any lightheadedness dizziness, chest pain, or palpitations. She has been afebrile. Patient denies any nausea or vomiting and has been tolerating diet. Patient recently started a weight loss program and is currently only taking apple cider vinegar tablets [id number]. Patient will follow-up with Dr. Clinton in the outpatient setting upon discharge. On exam vital signs are stable. Temp is 98.2F, pulse is 84, respirations are 20, blood pressure is 107/66, oxygen saturation is 97% on room air. Cardio S1, S2 are present. Respiratory system shows clear to auscultation. Abdomen is soft and nontender. Nervous system shows no focal deficits. Please refer to medication reconciliation sheet for a list of medications. Patient Condition at Discharge: Stable Plan - Discharge Summary Discharge Rx Participant: Yes New Discharge Prescriptions: Continue Cider Vinegar [Apple Cider Vinegar] 300 mg PO DAILY Discharge Medication List Cider Vinegar [Apple Cider Vinegar] 300 mg PO DAILY 09/25/19 [History] Follow up Appointment(s)/Referral(s): Idris Harrison MD [Medical Doctor] - 10/04/19 1:00 pm (Friday) Lyndon Clinton DO [Primary Care Provider] - 1-2 days (Line is busy. Please call to schedule follow up) Patient Instructions/Handouts: Transient Ischemic Attack (DC) Activity/Diet/Wound Care/Special Instructions: Contact call center to schedule meeting with a business office associate - [phone] after you obtain a referral from your PCP activity limited until follow up follow up with pcp upon discharge follow up with neurology in 3-4 weeks continue current diet Discharge Disposition: HOME SELF-CARE
--- NOTE | 2019-09-27 18:53 | ECHOF ---
Referral Reason:Thrombus MEASUREMENTS -------- HEIGHT: 165.1 cm WEIGHT: 73.9 kg BP: 115/56 RVIDd: 3.6 cm (< 3.3) IVSd: 1.2 cm (0.6 - 1.1) LVIDd: 3.5 cm (3.9 - 5.3) LVPWd: 0.8 cm (0.6 - 1.1) IVSs: 1.4 cm LVIDs: 2.2 cm LVPWs: 1.5 cm LAESV Index (A-L): 10.48 ml/m Ao Diam: 2.4 cm (2.0 - 3.7) AV Cusp: 1.6 cm (1.5 - 2.6) LA Diam: 2.2 cm (2.7 - 3.8) MV EXCURSION: 14.486 mm (> 18.000) MV EF SLOPE: 78 mm/s (70 - 150) EPSS: 0.3 cm MV E Donato: 0.44 m/s MV DecT: 211 ms MV A Donato: 0.60 m/s MV E/A Ratio: 0.73 RAP: 5.00 mmHg RVSP: 17.97 mmHg FINDINGS -------- Sinus rhythm. This was a technically good study. The left ventricular size is normal. Left ventricular wall thickness is normal. Overall left vent ricular systolic function is normal with, an EF between 60 - 65 %. The diastolic filling pattern is normal for the age of the patient 6.36. The right ventricle is normal in size. Normal LA size by volume 22+/-6 ml/m2. The right atrial size is normal. Interatrial and interventricular septum intact. The aortic valve is trileaflet and appears structurally normal. There is no evidence of aortic regu rgitation. No mitral regurgitation. Mild tricuspid regurgitation present. There is no evidence of pulmonary hypertension. The right v entricular systolic pressure, as measured by Doppler, is 17.97mmHg. There is no pulmonic regurgitation present. The aortic root size is normal. Normal inferior vena cava with normal inspiratory collapse consistent with estimated right atrial pre ssure of 5 mmHg. There is no pericardial effusion. CONCLUSIONS -------- 1. Sinus rhythm. 2. This was a technically good study. 3. The left ventricular size is normal. 4. Left ventricular wall thickness is normal. 5. Overall left ventricular systolic function is normal with, an EF between 60 - 65 %. 6. The diastolic filling pattern is normal for the age of the patient 6.36 7. The right ventricle is normal in size. 8. Normal LA size by volume 22+/-6 ml/m2. 9. The right atrial size is normal. 10. Interatrial and interventricular septum intact. 11. The aortic valve is trileaflet and appears structurally normal. 12. There is no evidence of aortic regurgitation. 13. No mitral regurgitation. 14. Mild tricuspid regurgitation present. 15. There is no evidence of pulmonary hypertension. 16. The right ventricular systolic pressure, as measured by Doppler, is 17.97mmHg. 17. There is no pulmonic regurgitation present. 18. The aortic root size is normal. 19. Normal inferior vena cava with normal inspiratory collapse consistent with estimated right atrial pressure of 5 mmHg. 20. There is no pericardial effusion. WEB MACHINE TENDER: Love Fernandez RDCS
--- NOTE | 2019-09-27 22:32 | P.PN ---
Progress Note - Text Progress Note Date: 09/27/19 SUBJECTIVE: No acute overnight events. MRI brain with no acute or chronic infarct, but there were 2 distinct but punctate FLAIR changes in the L hemisphere. Patient with no risk factors other than occasional headaches. Patient reports that her feet were numb for almost 1 year, and orthopedic doctors had told her that it was because of herniated disc. Patient at this time with no symptoms. Denies ever having other symptoms of weakness, numbness, significantly decreased vision, pain with eye movement, urinary/bowel symptoms. PHYSICAL EXAMINATION: GEN.: NAD, pleasant and cooperative HEENT: NCAT, sclera without icterus NECK: Supple SKIN AND EXTREMITIES: [Warm to touch, no edema] NEURO: MENTAL STATUS: Patient alert and oriented to self, place, time. Able to name the current president. Speech fluent, able to name and repeat, following all commands readily. No right and left disorientation, extinction to double simultaneous stimulation, finger agnosia, neglect. CRANIAL NERVES II THROUGH XII: II: Pupils are equal and reactive to light symmetrically. No afferent pupillary defect. Visual fan are intact. III, IV, : No ptosis. Extraocular movements full. No nystagmus. V: Facial sensation intact from V1-3. VII. No clear facial asymmetry. VIII: Hearing intact to finger rub bilaterally. IX, X: Symmetric palate elevation. XI: Shoulder shrug intact. XII: Tongue midline without fasciculation or atrophy. MOTOR: Normal bulk/tone. No pronator drift or tremor. Strength is 5/5 throughout all 4 extremities. SENSORY: Intact to light touch, in all 4 extremities. REFLEXES: 2+ throughout. Toes are downgoing. COORDINATION: Finger to nose intact. No dysmetria. GAIT: Narrow-based and stable. Able to toe/heel/tandem walk Assessment and Plan: 49-year-old woman with no known PMHx other than occasional headaches, presented to [facility] for one episode of confusion in which she couldn't recognize names on facebook, no longer having similar symptoms, mikki josé worked up for transient global amnesia, MRI brain w/o contrast did not show any acute or old stroke but showed 2 distinct but punctate hyperintensity on T2 FLAIR. Patient previously had vague symptoms of b/l feet numbness for almost 1 year, which has now resolved. Patient is in her 40s, woman, with no blatant risk factors for microvascular changes. As such, recommended lumbar puncture for additional information as multiple sclerosis is in the differential. Discussed with patient and , patient would like to collect herself before getting LP and get further work-up as outpatient. will be obtainining Vitami D level, which has not resulted yet. Will review lab tomororow and if low, will call paient to start supplementation. Patient will be following up with Dr. Harrison ~1-2 weeks of discharge.
== END 2019-09-27 14:32 | disposition home or self-care (01) ==
LOC: EC 12:28 → UNDOADMOB 15:04 → 3SCARD 15:04 → INTOOBSV 09-27 08:23 → OBSVTOIN 09-27 08:23 → UNDODISIN 09-27 14:32
PROVIDERS: ADMIT Internal Medicine; ATTEND Internal Medicine
DX: R41.3 Other amnesia (principal); R51 Headache; Z98.51 Tubal ligation status; Z82.3 Family history of stroke; Z82.49 Family history of ischemic heart disease and other diseases of the circulatory system; Z83.3 Family history of diabetes mellitus; Z82.0 Family history of epilepsy and other diseases of the nervous system
CPT/HCPCS: 96374; 96361; 99285; 36415; 93005; 93306; 82652; 80061; 80053; 84484; 85025; 85610; 85730; 81001; 71046; 93880; 70450; 70551; G0378 ×3; J2060; 96360

== ENCOUNTER → 2019-10-26 | Outpatient (CLI) | payer BC ==
[2019-10-26 20:50] LABS: Total Protein,CSF 76 mg/dL (12-60)
[2019-10-26 21:09] LABS: Appearance,CSF Clear; CSF Tube Number 4; CSF Tube Volume 3.5; Nucleated Cells, CSF 0 u/L (0-5); Red Blood Cell,CSF 0 u/L (0-10)
[2019-10-28 11:01] LABS: IgG - CSF 4.2 mg/dL (0.0 - 3.4); IgG/Albumin Index (CSF) 0.51 (0.00 - 0.77); Immunoglobulin G 960 mg/dL (700 - 1600)
== END | disposition home or self-care (01) ==
LOC: LABWHC1 12:20
PROVIDERS: ATTEND Nurse Practitioner Family
DX: H53.8 Other visual disturbances (principal); R42 Dizziness and giddiness; R93.0 Abnormal findings on diagnostic imaging of skull and head, not elsewhere classified
CPT/HCPCS: 36415; 82040; 82042; 82784; 83873; 83916; 84157; 87801; 88108; 89050

== ENCOUNTER 2019-10-29 16:24 | Emergency (ER) | payer BC ==
[2019-10-29 16:33] VITALS: TEMP 98.1
[2019-10-29] MEDS ORDERED: SODIUM CHLORIDE 0.9% 1,000 ML IV STA (16:57)
[2019-10-29] MEDS ORDERED: CAFFEINE-SODIUM BENZOATE 1,000 MG in SODIUM CHLORIDE 0.9% 1,000 ML IVPB ONE (17:30)
[2019-10-29] MEDS ORDERED: METOCLOPRAMIDE 5 MG/ML 2 ML VIAL IVP STA (18:03)
[2019-10-29] MEDS ORDERED: diphenhydrAMINE 50 MG/ML 1 ML VIAL IVP STA (18:03)
[2019-10-29] MEDS ORDERED: KETOROLAC 30 MG/ML 1 ML VIAL IVP STA (18:03)
[2019-10-29] MEDS ORDERED: CYCLOBENZAPRINE 10MG STARTER 3 TAB BTL PO STA (19:30)
--- NOTE | 2019-10-29 19:32 | ED ---
Headache HPI - General Mode of arrival: ambulatory Limitations: no limitations <Clay Benavides - Last Filed: 10/29/19 23:53> <Cata Cheema - Last Filed: 11/03/19 15:57> - General Chief Complaint: Headache Stated Complaint: post lumbar puncture-spinal fluid leak Time Seen by Provider: 10/29/19 16:51 - History of Present Illness Initial Comments: Patient is a 49-year-old female presenting to emergency Department with a chief complaint of a headache. Patient states 2 days ago she had a lumbar puncture at 's office to rule out MS. Patient states she was completely asymptomatic until today she developed a headache along the left side of her neck and also in the occipital region that is exacerbated especially whenever sh e is in a standing position. Patient also reports nausea but denies any vomiting. She reports the pain is alleviated whenever she is laying down. Patient denies history of headaches. Patient denies any night sweats fevers or chills. Patient states she called Dr. Sim's office who advised them to come to the ED for a blood patch. Patient denies blurry vision, chest pain, shortness of breath, one-sided weakness or paresthesias. (Clay Benavides) - Related Data Home Medications Medication Instructions Recorded Confirmed Cider Vinegar [Apple Cider Vinegar] 300 mg PO DAILY 09/25/19 09/25/19 Previous Rx's Medication Instructions Recorded Cyclobenzaprine [Flexeril] 5 mg PO TID PRN #15 tablet 10/29/19 Allergies Allergy/AdvReac Type Severity Reaction Status Date / Time No Known Allergies Allergy Verified 10/29/19 16:33 Review of Systems ROS Other: All systems not noted in ROS Statement are negative. <Clay Benavides - Last Filed: 10/29/19 23:53> ROS Other: All systems not noted in ROS Statement are negative. <Cata Cheema - Last Filed: 11/03/19 15:57> ROS Statement: Those systems with pertinent positive or pertinent negative responses have been documented in the HPI. Past Medical History Past Medical History: CVA/TIA Additional Past Medical History / Comment(s): Possible MS History of Any Multi-Drug Resistant Organisms: None Reported Past Surgical History: Section, Tubal Ligation Past Psychological History: No Psychological Hx Reported Smoking Status: Never smoker Past Alcohol Use History: None Reported Past Drug Use History: None Reported - Past Family History Mother Family Medical History: Dementia, Diabetes Mellitus Father Family Medical History: CVA/TIA, Diabetes Mellitus, Myocardial Infarction ([place]) Additional Family Medical History / Comment(s): glaucoma <Clay Benavides - Last Filed: 10/29/19 23:53> General Exam Limitations: no limitations General appearance: alert, in no apparent distress Head exam: Present: atraumatic, normocephalic, normal inspection Eye exam: Present: normal appearance, PERRL, EOMI Pupils: Present: normal accommodation ENT exam: Present: normal exam, mucous membranes moist Neck exam: Present: normal inspection, tenderness (Tenderness along the left trapezius and SCM muscle.), full ROM Respiratory exam: Present: normal lung sounds bilaterally Cardiovascular Exam: Present: regular rate, normal rhythm, normal heart sounds Extremities exam: Present: normal inspection, full ROM Back exam: Present: normal inspection, full ROM Neurological exam: Present: alert, oriented X3, CN II-XII intact, normal gait Psychiatric exam: Present: normal affect, normal mood Skin exam: Present: warm, dry, intact, normal color <Clay Benavides - Last Filed: 10/29/19 23:53> Course Vital Signs 10/29/19 10/29/19 16:30 19:42 Temperature 98.1 F Pulse Rate 91 68 Respiratory 20 18 Rate Blood Pressure 102/68 106/79 O2 Sat by Pulse 99 98 Oximetry Medical Decision Making <Clay Benavides - Last Filed: 10/29/19 23:53> <Cata Cheema - Last Filed: 11/03/19 15:57> - Medical Decision Making patient is a 49-year-old female presenting to emergency Department with a chief complaint of a headache. Patient recently had a lumbar puncture and is not sprinting a spinal headache. Physical examination patient appears to have cervical neck strain especially on the left side of the neck along the SCM left trapezius. Pain is definitely reproducible palpation. No midline cervical tenderness. No trauma to the region. Lumbar puncture has healed. Patient was also nauseous and symptomatically while she was standing on initial evaluation. Patient was given fluids, caffeine, Toprol, Benadryl and Reglan. On reevaluation patient reports the cervical strain is still present, however the headache and occipital region has resolved. Patient was able to be in a standing position. Prolonged periods of time. Patient was also able to walk down the quiros without any issues. Patient is not nauseous anymore. I suspect the cervical neck strain is secondary to new unusual sleeping position which the patient states that she was required to sleep on her back which she usually never does. Patient advised to follow-up with an urologist. Strict return parameters were thoroughly discussed with patient was understanding and agreeable. Case discussed with physician. (Clay Benavides) I was available for consultation in the emergency department. The history and physical exam were done by the midlevel provider. I was consulted for this patients care. I reviewed the case with the midlevel provider and based on their presentation of the patient, I agree with the assessment, medical decision making and plan of care as documented. Patient instructed to follow up with neurology for continued care. Return to the ED if symptoms worsen/return. Chart was dictated using [employer] dictation software. Attempts were made to correct any dictation errors however some typographical errors may persist. (Cata Cheema) Disposition Is patient prescribed a controlled substance at d/c from ED?: No Time of Disposition: 19:32 <Clay Benavides - Last Filed: 10/29/19 23:53> <Cata Cheema - Last Filed: 11/03/19 15:57> Clinical Impression: Spinal headache Disposition: HOME SELF-CARE Condition: Stable Instructions (If sedation given, give patient instructions): Epidural Blood Patch (DC) Additional Instructions: Please take prescribed medication as directed. Please follow up with primary care. Please return to emergency department if symptoms worsen. Prescriptions: Cyclobenzaprine [Flexeril] 5 mg PO TID PRN #15 tablet PRN Reason: Muscle Spasm Referrals: Lyndon Clinton DO [Primary Care Provider] - 1-2 days
[2019-10-29 19:44] VITALS: BP 106/79; PULSE 68; RESP 18
== END 2019-10-29 19:44 | disposition home or self-care (01) ==
LOC: EC 16:24
DX: G97.1 Other reaction to spinal and lumbar puncture (principal); M54.2 Cervicalgia; R11.0 Nausea; Z86.73 Personal history of transient ischemic attack (TIA), and cerebral infarction without residual deficits; Z79.899 Other long term (current) drug therapy
CPT/HCPCS: 99284; 96365; 96366; 96375 ×3; J1200; J2765; J1885

== ENCOUNTER → 2020-06-02 | Outpatient (CLI) | payer BC | END | disposition home or self-care (01) | LOC: LABWHC1 14:32 | PROVIDERS: ATTEND Family Medicine | DX: Z20.828 Contact with and (suspected) exposure to other viral communicable diseases (principal) | CPT/HCPCS: U0003; C9803 ==

== ENCOUNTER → 2020-08-03 | Outpatient (CLI) | payer BC ==
[2020-08-03 11:11] LABS: HCT 40.6 % (34.0-46.0); HGB 12.8 gm/dL (11.4-16.0); MCH 29.5 pg (25.0-35.0); MCHC 31.5 g/dL (31.0-37.0); MCV 93.8 fL (80.0-100.0); Platelet Count 244 k/uL (150-450); RBC 4.33 m/uL (3.80-5.40); RDW 13.6 % (11.5-15.5); WBC 5.7 k/uL (3.8-10.6)
[2020-08-03 20:13] LABS: ALT 30 U/L (8-44); AST 18 U/L (13-35); African American GFR (CKD) 100.3 (60.0-200.0); Albumin/Globulin Ratio 1.86 (1.60-3.17); Alkaline Phosphatase 44 U/L (41-126); BUN/Creat Ratio 16.25 Ratio (12.00-20.00); Calcium 9.2 mg/dL (8.7-10.3); Carbon Dioxide 27.2 mmol/L (21.6-31.8); Chloride 107 mmol/L (96-109); Chol/HDL Ratio 3.59; Cholesterol 183 mg/dL (0-200); Globulin 2.2 g/dL (1.6-3.3); Glucose 95 mg/dL (70-110); Non-African American GFR(CKD) 86.6 (60.0-200.0); Potassium 4.4 mmol/L (3.5-5.5); Sodium 141 mmol/L (135-145); Total Bilirubin 0.4 mg/dL (0.2-1.2); Total Protein 6.3 g/dL (6.2-8.2)
[2020-08-03 20:22] LABS: Estradiol 66.8 pg/mL; Follicle Stimulating Hormone 8.8 mIU/mL; Luteinizing Hormone 9.2 mIU/mL
[2020-08-03 20:32] LABS: Folate, Serum >24.0 ng/mL
[2020-08-03 21:08] LABS: Cardiolipin Ab IgG Interp NEGATIVE (NEGATIVE); Cardiolipin IgA Antibody <0.5 U/mL
[2020-08-03 21:09] LABS: Cardiolipin Ab IgM Interp NEGATIVE (NEGATIVE); Cardiolipin IgM Antibody 0.5 U/mL
[2020-08-03 23:18] LABS: INR 0.93 (0.90-1.11); Partial Thromboplastin Time 26.5 sec (24.7-29.9)
== END | disposition home or self-care (01) ==
LOC: LABWHC1 10:00
PROVIDERS: ATTEND Family Medicine
DX: E55.9 Vitamin D deficiency, unspecified (principal); G45.8 Other transient cerebral ischemic attacks and related syndromes; N95.8 Other specified menopausal and perimenopausal disorders; K21.00 Gastro-esophageal reflux disease with esophagitis, without bleeding
CPT/HCPCS: 36415; 80053; 80061; 81241; 82306; 82607; 82670; 82746; 83001; 83002; 83090; 84443; 85027; 85610; 85730; 86147

== ENCOUNTER 2020-12-15 07:19 | Day surgery (SDC) | payer BC ==
[2020-12-13 09:53] VITALS: BMI 26.6
[~2020-12-15 07:19] MED LIST: LACTATED RINGERS 1,000 ML IV SCH
[2020-12-15 07:51] VITALS: RESP 16; TEMP 97.8
[2020-12-15] MEDS ORDERED: ONDANSETRON 4 MG/2 ML VIAL ONE (07:58)
[2020-12-15] MEDS ORDERED: LIDOCAINE 1% INJ 10MG/ML (20 ML MDV) ONE (08:29)
[2020-12-15] MEDS ORDERED: PROPOFOL 10 MG/ML 20 ML VIAL IV ONE (08:29)
--- NOTE | 2020-12-15 08:42 | P.PCN ---
Date of Procedure: 12/15/20 Procedure(s) Performed: BRIEF HISTORY: Patient is a 50-year-old pleasant female scheduled for an elective colonoscopy as a part of screening for colorectal neoplasia. PROCEDURE PERFORMED: Colonoscopy with biopsy. PREOPERATIVE DIAGNOSIS: Screening for colon cancer. IV sedation per Anesthesia. PROCEDURE: After informed consent was obtained, the patient, was brought into the endoscopy unit. IV sedation was administered by Anesthesia under continuous monitoring. Digital rectal examination was normal. Initially the Olympus CF-160 flexible video colonoscope was then inserted in the rectum, gradually advanced into the cecum without any difficulty. Careful examination was performed as the scope was gradually being withdrawn. Ileocecal valve and the appendiceal orifice were visualized and appeared normal. Prep was excellent. Mucosa of the cecum, ascending colon, transverse colon, descending colon, sigmoid colon, and rectum appeared normal. In the proximal rectum there was a 3 mm sessile polyp removed by cold biopsy. Retroflexion was performed in the rectum and no lesions were seen. The patient tolerated the procedure well. IMPRESSION: 3 mm proximal rectal polyp status post cold biopsy Rest of the colon appeared normal RECOMMENDATIONS: Findings of this examination were discussed with the patient as well as a family. She was advised to follow with the biopsy results. If the biopsy shows an adenoma she can have a repeat colonoscopy in 5 years.
[2020-12-15 09:00] VITALS: BP 113/73; PULSE 71
== END 2020-12-15 09:24 | disposition home or self-care (01) ==
LOC: ORWHC2ENDO 07:19
PROVIDERS: ATTEND Internal Medicine Gastroenterology
DX: Z12.11 Encounter for screening for malignant neoplasm of colon (principal); D12.8 Benign neoplasm of rectum; Z86.73 Personal history of transient ischemic attack (TIA), and cerebral infarction without residual deficits; Z98.51 Tubal ligation status
CPT/HCPCS: 81025; 88305; 45380; J2001; J2704

== ENCOUNTER → 2021-01-08 | Outpatient (CLI) | payer BC ==
--- NOTE | 2021-01-10 12:27 | MM ---
Reason for exam: screening (asymptomatic). Last mammogram was performed 1 year and 11 months ago. History: Family history of breast cancer in maternal grandmother at age 80, breast cancer in maternal aunt at age 50, and breast cancer in maternal cousin at age 46. Physical Findings: A clinical breast exam by your physician is recommended on an annual basis and results should be correlated with mammographic findings. MG 3D Screening Mammo W/Cad Bilateral CC and MLO view(s) were taken. Prior study comparison: January 26, 2019, bilateral MG 3d screening mammo w/cad. December 02, 2017, bilateral MG 3d screening mammo w/cad. The breast tissue is heterogeneously dense. This may lower the sensitivity of mammography. Round asymmetric density lateral right CC view is more defined and incompletely disperses on 3D images. No clear MLO correlate. ASSESSMENT: Incomplete: need additional imaging evaluation, BI-RAD 0 RECOMMENDATION: Special view mammogram of the right breast. (3D) If lesion persists on supplemental views, image directed ultrasound is recommended. [facility] will attempt to contact patient to return for supplemental views and ultrasound if indicated.
== END | disposition home or self-care (01) ==
LOC: RADMAMWWP 13:00
PROVIDERS: ATTEND Obstetrics & Gynecology
DX: Z12.31 Encounter for screening mammogram for malignant neoplasm of breast (principal); R92.8 Other abnormal and inconclusive findings on diagnostic imaging of breast
CPT/HCPCS: 77063; 77067

== ENCOUNTER → 2021-01-12 | Outpatient (CLI) | payer BC ==
--- NOTE | 2021-01-12 13:28 | MM ---
Reason for exam: additional evaluation requested from abnormal screening. Last mammogram was performed less than 1 month ago. History: Family history of breast cancer in maternal grandmother at age 80, breast cancer in maternal aunt at age 50, and breast cancer in maternal cousin at age 46. Physical Findings: Nurse did not find any significant physical abnormalities on exam. MG 3D Work Up W/Cad RT Spot compression CC, spot compression MLO, and LM view(s) were taken of the right breast. Prior study comparison: January 08, 2021, bilateral MG 3d screening mammo w/cad. January 26, 2019, bilateral MG 3d screening mammo w/cad. The breast tissue is heterogeneously dense. This may lower the sensitivity of mammography. The questioned lateral asymmetric density disperses on additional views. These results were verbally communicated with the patient and result sheet given to the patient on 01/12/21. ASSESSMENT: Negative, BI-RAD 1 RECOMMENDATION: Return to routine screening mammogram schedule for both breasts.
== END | disposition home or self-care (01) ==
LOC: RADMAMWWP 08:51
PROVIDERS: ATTEND Obstetrics & Gynecology
DX: R92.2 Inconclusive mammogram (principal); Z80.3 Family history of malignant neoplasm of breast
CPT/HCPCS: 77061; 77065

== ENCOUNTER → 2022-04-04 | Outpatient (CLI) | payer BC ==
--- NOTE | 2022-04-05 07:56 | MM ---
Reason for Exam: Screening (asymptomatic). Last mammogram was performed 1 year(s) and 3 month(s) ago. Patient History: Menarche at age 12. First Full-Term at age 18. Patient has history of breast feeding. Maternal grandmother had breast cancer, age 80. Maternal cousin had breast cancer, age 46. Maternal aunt had breast cancer, age 50. Last menstrual period: 03/25/2022 Risk Values: Maddie 5 year model risk: 0.8%. NCI Lifetime model risk: 7.0%. Prior Study Comparison: 01/26/2019 Bilateral Screening Mammogram, [facility]. 01/08/2021 Bilateral Screening Mammogram, [facility]. 01/12/2021 Right Diagnostic Mammogram, [facility]. Tissue Density: The breast tissue is heterogeneously dense. This may lower the sensitivity of mammography. Findings: Analyzed By CAD. There is no suspicious group of microcalcifications or new suspicious mass in either breast. Overall Assessment: Negative, BI-RAD 1 Management: Screening Mammogram of both breasts in 1 year. A clinical breast exam by your physician is recommended on an annual basis and results should be correlated with mammographic findings. Electronically signed and approved by: Joaquin Marvin M.D. Radiologis
== END ==
LOC: RADMAMWWP 09:44
PROVIDERS: ATTEND Obstetrics & Gynecology
DX: Z12.31 Encounter for screening mammogram for malignant neoplasm of breast (principal); Z80.3 Family history of malignant neoplasm of breast; Z78.0 Asymptomatic menopausal state
CPT/HCPCS: 77063; 77067

== ENCOUNTER → 2022-04-19 | Outpatient (CLI) | payer BC | END | disposition home or self-care (01) | LOC: LABWHC1 09:25 | PROVIDERS: ATTEND Physician Assistant | DX: E78.2 Mixed hyperlipidemia (principal); R53.83 Other fatigue; M13.0 Polyarthritis, unspecified | CPT/HCPCS: 36415; 86141 ==

== ENCOUNTER → 2022-07-15 | Outpatient (CLI) | payer BC ==
[2022-07-15 18:03] LABS: Basophils # (A) 0.03 X 10*3/uL (0.00-0.10); Basophils % (A) 0.3 %; Eosinophils # (A) 0.09 X 10*3/uL (0.04-0.35); HCT 41.4 % (37.2-46.3); Immature Grans, Automated 0.3 %; Lymphocytes # (A) 0.74 X 10*3/uL (0.90-5.00); Lymphocytes % (A) 8.5 %; MCH 29.3 pg (27.0-32.0); MCHC 31.4 g/dL (32.0-37.0); MCV 93.5 fL (80.0-97.0); Mean Platelet Volume 10.1 fL (9.5-12.2); Monocytes # (A) 0.59 X 10*3/uL (0.20-1.00); Monocytes % (A) 6.8 %; NRBC Per 100 WBC 0 /100 WBCS (0.0-0.0); Neutrophils # (A) 7.19 X 10*3/uL (1.80-7.70); Neutrophils % (A) 83.1 %; Platelet Count 232 X 10*3/uL (140-440); RBC 4.43 X 10*6/uL (4.10-5.20); RDW 13.1 % (11.5-14.5); WBC 8.67 X 10*3/uL (4.50-10.00)
[2022-07-15 18:17] LABS: Thyroid Peroxidase Antibodies <9.0 U/mL (0.0-33.0)
[2022-07-15 18:19] LABS: ALT 24 U/L (8-44); AST 18 U/L (13-35); African American GFR (CKD) 107.3 (60.0-200.0); Albumin 4.4 g/dL (3.8-4.9); Albumin/Globulin Ratio 1.92 (1.60-3.17); Alkaline Phosphatase 57 U/L (41-126); BUN/Creat Ratio 17.51 Ratio (12.00-20.00); Blood Urea Nitrogen 13.1 mg/dL (9.0-27.0); Calcium 9.2 mg/dL (8.7-10.3); Carbon Dioxide 24.9 mmol/L (20.0-27.5); Chloride 103 mmol/L (96-109); Chol/HDL Ratio 3.19 Ratio; Follicle Stimulating Hormone 10.3 mIU/mL; Globulin 2.3 g/dL (1.6-3.3); Glucose 92 mg/dL (70-110); LDL Cholesterol,Calculated 91.9 mg/dL (0.0-131.0); Non-African American GFR(CKD) 92.6 (60.0-200.0); Potassium 4.3 mmol/L (3.5-5.5); Sodium 140 mmol/L (135-145); Total Protein 6.6 g/dL (6.2-8.2)
== END | disposition home or self-care (01) ==
LOC: LABWHC1 11:05
PROVIDERS: ATTEND Obstetrics & Gynecology
DX: K21.9 Gastro-esophageal reflux disease without esophagitis (principal); E78.2 Mixed hyperlipidemia; R53.83 Other fatigue; M13.0 Polyarthritis, unspecified; N95.1 Menopausal and female climacteric states
CPT/HCPCS: 36415; 80053; 80061; 82670; 83001; 84144; 84403; 84443; 85025; 86140; 86376; 86800

== ENCOUNTER → 2023-08-20 | Outpatient (CLI) | payer BC ==
--- NOTE | 2023-08-20 09:27 | MM ---
Reason for Exam: Screening (asymptomatic). Last mammogram was performed 1 year(s) and 5 month(s) ago. Patient History: Menarche at age 12. First Full-Term at age 18. Premenopausal. Patient has history of breast feeding. Maternal grandmother had breast cancer, age 80. Maternal cousin had breast cancer, age 46. Maternal aunt had breast cancer, age 50. Last menstrual period: 08/13/2023 Risk Values: Maddie 5 year model risk: 0.8%. NCI Lifetime model risk: 6.9%. Prior Study Comparison: 01/08/2021 Bilateral Screening Mammogram, [facility]. 01/12/2021 Right Diagnostic Mammogram, [facility]. 04/04/2022 Bilateral MG 3D screening mammo w/cad, [facility]. Tissue Density: The breast tissue is heterogeneously dense. This may lower the sensitivity of mammography. Findings: Analyzed By CAD. There is no suspicious group of microcalcifications or new suspicious mass in either breast. Overall Assessment: Negative, BI-RAD 1 Management: Screening Mammogram of both breasts in 1 year. A clinical breast exam by your physician is recommended on an annual basis and results should be correlated with mammographic findings. Note on Maddie scores and lifetime risk: 1. A Maddie score greater than 3% is considered moderate risk. If this is the case, consider specialist referral to assess eligibility for a risk reducing agent. If overall lifetime risk for the development of breast cancer is 20% or higher, the patient may qualify for future screening with alternating mammogram and breast MRI. Electronically signed and approved by: Bobby Montelongo D.O.
== END | disposition home or self-care (01) ==
LOC: RADMAMWWP 08:27
PROVIDERS: ATTEND Obstetrics & Gynecology
DX: Z12.31 Encounter for screening mammogram for malignant neoplasm of breast (principal); Z80.3 Family history of malignant neoplasm of breast
CPT/HCPCS: 77063; 77067

== ENCOUNTER 2024-02-24 12:45 | Inpatient (IN) | payer BC ==
--- NOTE | 2024-02-24 12:49 | ED ---
General Adult HPI - General Source: patient, RN notes reviewed Mode of arrival: ambulatory Limitations: no limitations <Betty Dao - Last Filed: 02/24/24 12:48> <Carlito De Luna - Last Filed: 02/24/24 15:45> - General Chief complaint: Neuro Symptoms/Deficit Stated complaint: Stroke systems Time Seen by Provider: 02/24/24 12:48 - History of Present Illness Initial comments: Quick Note: This is a 53-year-old female who presents to the emergency department for numbness. Patient had a stroke 3 to 4 years ago, and states that for the last 1.5 hours she has had numbness to the left side of her body. No longer taking a blood thinner, but did take an Aspirin when symptoms began. (Betty Dao) This is a 53-year-old female who states that about 11:00 today she was driving her car and she felt some pressure in her head and then noticed some decrease sensation on the right side of her face. Patient denied any facial droop. Patient denied any speech deficits. Patient any weakness or numbness anywhere else. Patient denies chest pain palpitation difficulty breathing shortness of breath. Patient states in the past she had a TIA. Patient states she thought maybe this was secondary to stress because she has been under a large amount of stress lately. (Carlito De Luna) - Related Data Home Medications Medication Instructions Recorded Confirmed Famotidine 40 mg PO HS 02/24/24 02/24/24 Allergies Allergy/AdvReac Type Severity Reaction Status Date / Time ciprofloxacin [From Cipro] AdvReac Abdominal Verified 02/24/24 13:20 Pain diazepam [From Valium] AdvReac Hallucinati Verified 02/24/24 13:20 ons Review of Systems ROS Other: All systems not noted in ROS Statement are negative. <Betty Dao - Last Filed: 02/24/24 12:48> ROS Other: All systems not noted in ROS Statement are negative. <Carlito De Luna - Last Filed: 02/24/24 15:45> ROS Statement: Those systems with pertinent positive or pertinent negative responses have been documented in the HPI. Past Medical History Past Medical History: CVA/TIA Additional Past Medical History / Comment(s): POSSIBLE TIA-09/2019-NEVER CONFIRMED. PAST HX PANCREATITIS/COLITIS History of Any Multi-Drug Resistant Organisms: None Reported Past Surgical History: Section, Tubal Ligation Additional Past Surgical History / Comment(s): D & C Past Anesthesia/Blood Transfusion Reactions: Postoperative Nausea & Vomiting (PONV) Smoking Status: Never smoker - Past Family History Mother Family Medical History: Dementia, Diabetes Mellitus Father Family Medical History: CVA/TIA, Diabetes Mellitus, Myocardial Infarction ([place]) Additional Family Medical History / Comment(s): glaucoma <Betty Dao - Last Filed: 02/24/24 12:48> General Exam <Betty Dao - Last Filed: 02/24/24 12:48> <Carlito De Luna - Last Filed: 02/24/24 15:45> - General Exam Comments Initial Comments: Visual Physical Exam Vital signs reviewed General: Well-appearing, nontoxic, no acute distress. Head: Normocephalic, atraumatic Eyes: PERRLA, EOMI ENT: Airway patent Chest: Nonlabored breathing Skin: No visual rash, normal skin tone Neuro: Alert and oriented 3 Musculoskeletal: No gross abnormalities (Betty Dao) GENERAL: Patient is well-developed and well-nourished. Patient is nontoxic and well- hydrated and is in mild distress. ENT: Neck is soft and supple. No significant lymphadenopathy is noted. Oropharynx is clear. Moist mucous membranes. Neck has full range of motion without eliciting any pain. EYES: The sclera were anicteric and conjunctiva were pink and moist. Extraocular movements were intact and pupils were equal round and reactive to light. Eyelid s were unremarkable. PULMONARY: Unlabored respirations. Good breath sounds bilaterally. No audible rales rhonchi or wheezing was noted. CARDIOVASCULAR: There is a regular rate and rhythm without any murmurs gallops or rubs. Femoral pulses are equal bilaterally ABDOMEN: Soft and nontender with normal bowel sounds. SKIN: Skin is clear with no lesions or rashes and otherwise unremarkable. NEUROLOGIC: Patient is alert and oriented x3. Cranial nerves II through XII are grossly intact except for slight decrease sensation on the left side of her face.. Motor and sensory are also intact. Normal speech, volume and content. Symmetrical smile. Patient's NIH is 1 MUSCULOSKELETAL: Normal extremities with adequate strength and full range of motion. No lower extremity swelling or edema. No calf tenderness. LYMPHATICS: No significant lymphadenopathy is noted PSYCHIATRIC: Patient is very anxious and tearful (Carlito De Luna) Course Vital Signs 02/24/24 02/24/24 02/24/24 12:50 13:15 13:30 Temperature 98.7 F Pulse Rate 80 93 87 Respiratory 18 20 18 Rate Blood Pressure 138/58 124/58 119/80 O2 Sat by Pulse 98 99 99 Oximetry Medical Decision Making <Betty Dao - Last Filed: 02/24/24 12:48> - Lab Data Result diagrams: 02/24/24 13:06 02/24/24 13:06 <Carlito De Luna - Last Filed: 02/24/24 15:45> - Medical Decision Making I performed the QuickNote portion of this chart. Signed Betty Dao PA-C. (Betty Dao) EKG is interpreted by myself but EKG shows a sinus tachycardia at 114 bpm parable 136 QRS of 79 QT interval 327 QTc is 394. Patient EKG shows no ST segment ovation or depression. Was pt. sent in by a medical professional or institution (MUKUND Hoang, NUTRITION CONSULTANT, urgent care, hospital, or [facility]...) When possible be specific @ -No Did you speak to anyone other than the patient for history (EMS, parent, family, police, friend...)? What history was obtained from this source @ -No Did you review nursing and triage notes (agree or disagree)? Why? @ -I reviewed and agree with nursing and triage notes Were old charts reviewed (outside hosp., previous admission, EMS record, old EKG, old radiological studies, urgent care reports/EKG's, [facility] records)? Report findings @ -Patient on prior hospital stays patient had an MRI and I reviewed the MRI and it showed no acute abnormality at this time. Differential Diagnosis (chest pain, altered mental status, abdominal pain women, abdominal pain men, vaginal bleeding, weakness, fever, dyspnea, syncope, headache, dizziness, GI bleed, back pain, seizure, CVA, palpatations, mental health, musculoskeletal)? @ -Differential CVA Ischemic stroke, hemorrhagic stroke, brain tumor, atypical migraine, Wernicke's encephalopathy, seizure, multiple sclerosis, meningitis, encephalitis, hypoglycemia, Guillain-Mcleod, electrolytes disturbance, myasthenia gravis.... This is not meant to be an all-inclusive list EKG interpreted by me (3pts min.). @ -As above X-rays interpreted by me (1pt min.). @ -Chest x-ray showed no acute normality CT interpreted by me (1pt min.). @ -CT of the brain showed no acute [place]. CT angio of the head and neck showed no acute malady. U/S interpreted by me (1pt. min.). @ -None done What testing was considered but not performed or refused? (CT, X-rays, U/S, labs)? Why? @ -None What meds were considered but not given or refused? Why? @ -None Did you discuss the management of the patient with other professionals (professionals i.e. , PA, NUTRITION CONSULTANT, lab, RT, psych nurse, social secretary, journeyman plumber, teacher, investment officer, casework specialist)? Give summary @ -I spoke with [facility] physicians they agreed to admit the patient. Was smoking cessation discussed for >3mins.? @ -No Was critical care preformed (if so, how long)? @ -35 minutes Were there social determinants of health that impacted care today? How? (Homelessness, low income, unemployed, alcoholism, drug addiction, transportation, low edu. Level, literacy, decrease access to med. care, intermediate, rehab)? @ -No Was there de-escalation of care discussed even if they declined (Discuss DNR or withdrawal of care, Hospice)? DNR status @ -No What co-morbidities impacted this encounter? (DM, HTN, Smoking, COPD, CAD, Cancer, CVA, ARF, Chemo, Hep., AIDS, mental health diagnosis, sleep apnea, morbid obesity)? @ -None Was patient admitted / discharged? Hospital course, mention meds given and route, prescriptions, significant lab abnormalities, going to OR and other pertinent info. @ -A code stroke was called overhead as soon as I saw the patient. I went back into reevaluate the patient and she continued to have decreased sensation on the left side of her face. Patient also continued to have a mild headache. Patient will be admitted for CVA. Patient will have a consult to neurology and a admitted to [facility] physicians and wrote admitting orders. Patient did not receive TNKase risks far outweighed benefits. Undiagnosed new problem with uncertain prognosis? @ -No Drug Therapy requiring intensive monitoring for toxicity (Heparin, Nitro, Insulin, Cardizem)? @ -No Were any procedures done? @ -No Diagnosis/symptom? @ -CVA Acute, or Chronic, or Acute on Chronic? @ -Acute Uncomplicated (without systemic symptoms) or Complicated (systemic symptoms)? @ -Complicated Side effects of treatment? @ -No Exacerbation, Progression, or Severe Exacerbation? @ -No Poses a threat to life or bodily function? How? (Chest pain, [place], [place], pneumonia, PE, COPD, DKA, ARF, appy, cholecystitis, CVA, Diverticulitis, Homicidal, Suicidal, threat to staff... and all critical care pts) @ -Yes this could lead to a CVA and significant morbidity or mortality (Carlito De Luna) - Lab Data Lab Results 02/24/24 02/24/24 02/24/24 Range/Units 13:05 13:06 13:06 WBC 9.8 (3.8-10.6) k/uL RBC 4.97 (3.80-5.40) m/uL Hgb 14.3 (11.4-16.0) gm/dL Hct 45.5 (34.0-46.0) % MCV 91.5 (80.0-100.0) fL MCH 28.8 (25.0-35.0) pg MCHC 31.4 (31.0-37.0) g/dL RDW 12.9 (11.5-15.5) % Plt Count 251 (150-450) k/uL MPV 7.7 Neutrophils % 76 % Lymphocytes % 17 % Monocytes % 5 % Eosinophils % 1 % Basophils % 1 % Neutrophils # 7.4 (1.3-7.7) k/uL Lymphocytes # 1.6 (1.0-4.8) k/uL Monocytes # 0.5 (0-1.0) k/uL Eosinophils # 0.1 (0-0.7) k/uL Basophils # 0.1 (0-0.2) k/uL PT 10.1 (10.0-12.5) sec INR 0.9 (<1.2) APTT 25.0 (22.0-30.0) sec Sodium (137-145) mmol/L Potassium (3.5-5.1) mmol/L Chloride (98-107) mmol/L Carbon Dioxide (22-30) mmol/L Anion Gap mmol/L BUN (7-17) mg/dL Creatinine (0.52-1.04) mg/dL Est GFR (CKD-EPI)AfAm (>60 ml/min/1.73 sqM) Est GFR (CKD-EPI)NonAf (>60 ml/min/1.73 sqM) Glucose (74-99) mg/dL POC Glucose (mg/dL) 92 (70-110) mg/dL POC Glu Grinding Wheel Operator ID Elijah, Mikael Calcium (8.4-10.2) mg/dL Total Bilirubin (0.2-1.3) mg/dL AST (14-36) U/L ALT (4-34) U/L Alkaline Phosphatase (38-126) U/L Creatine Kinase (30-135) U/L Troponin I (0.000-0.034) ng/mL Total Protein (6.3-8.2) g/dL Albumin (3.5-5.0) g/dL 02/24/24 02/24/24 Range/Units 13:06 13:06 WBC (3.8-10.6) k/uL RBC (3.80-5.40) m/uL Hgb (11.4-16.0) gm/dL Hct (34.0-46.0) % MCV (80.0-100.0) fL MCH (25.0-35.0) pg MCHC (31.0-37.0) g/dL RDW (11.5-15.5) % Plt Count (150-450) k/uL MPV Neutrophils % % Lymphocytes % % Monocytes % % Eosinophils % % Basophils % % Neutrophils # (1.3-7.7) k/uL Lymphocytes # (1.0-4.8) k/uL Monocytes # (0-1.0) k/uL Eosinophils # (0-0.7) k/uL Basophils # (0-0.2) k/uL PT (10.0-12.5) sec INR (<1.2) APTT (22.0-30.0) sec Sodium 140 (137-145) mmol/L Potassium 3.8 (3.5-5.1) mmol/L Chloride 107 (98-107) mmol/L Carbon Dioxide 27 (22-30) mmol/L Anion Gap 6 mmol/L BUN 14 (7-17) mg/dL Creatinine 0.75 (0.52-1.04) mg/dL Est GFR (CKD-EPI)AfAm >90 (>60 ml/min/1.73 sqM) Est GFR (CKD-EPI)NonAf >90 (>60 ml/min/1.73 sqM) Glucose 100 H (74-99) mg/dL POC Glucose (mg/dL) (70-110) mg/dL POC Glu Grinding Wheel Operator ID Calcium 9.3 (8.4-10.2) mg/dL Total Bilirubin 0.6 (0.2-1.3) mg/dL AST 23 (14-36) U/L ALT 31 (4-34) U/L Alkaline Phosphatase 63 (38-126) U/L Creatine Kinase 55 (30-135) U/L Troponin I <0.012 (0.000-0.034) ng/mL Total Protein 7.4 (6.3-8.2) g/dL Albumin 4.5 (3.5-5.0) g/dL Critical Care Time Critical Care Time: Yes Total Critical Care Time: 35 <Carlito De Luna - Last Filed: 02/24/24 15:45> Disposition <Betty Dao - Last Filed: 02/24/24 12:48> Time of Disposition: 15:42 <Carlito De Luna - Last Filed: 02/24/24 15:45> Clinical Impression: Cerebrovascular accident (CVA) Disposition: ADMITTED IP TO THIS HOSP Referrals: Lyndon Clinton DO [Primary Care Provider] - 1-2 days
[2024-02-24 13:07] LABS: Glucose,Whole Blood 92 mg/dL (70-110)
[2024-02-24] MEDS: LORazepam 2 MG/ML INJ IV STA (13:10)
[2024-02-24] MEDS: SODIUM CHLORIDE 0.9% 500 ML 500 ML IV STA (13:12)
[2024-02-24 13:29] LABS: ALT 31 U/L (4-34); AST 23 U/L (14-36); African American GFR (CKD) >90 (>60 ml/min/1.73 sqM); Albumin 4.5 g/dL (3.5-5.0); Alkaline Phosphatase 63 U/L (38-126); Anion Gap 6 mmol/L; Blood Urea Nitrogen 14 mg/dL (7-17); Calcium 9.3 mg/dL (8.4-10.2); Carbon Dioxide 27 mmol/L (22-30); Chloride 107 mmol/L (98-107); Creatine Kinase 55 U/L (30-135); Glucose 100 mg/dL (74-99); Non-African American GFR(CKD) >90 (>60 ml/min/1.73 sqM); Potassium 3.8 mmol/L (3.5-5.1); Sodium 140 mmol/L (137-145); Total Bilirubin 0.6 mg/dL (0.2-1.3); Total Protein 7.4 g/dL (6.3-8.2)
--- NOTE | 2024-02-24 13:37 | CT ---
EXAMINATION TYPE: CT brain wo con DATE OF EXAM: 02/24/2024 COMPARISON: 09/25/2019 HISTORY: ANDERSON, Lt sided numbness to face CT DLP: [address] of the brain was performed. The ventricles, basal cisterns and sulci overlying the cerebral convexities demonstrate mild enlargem ent. There is no evidence for intracranial hemorrhage or sulcal effacement. There is decreased attenuation about the periventricular white matter and deep white matter of both c erebral hemispheres, compatible with chronic small vessel ischemia. Differential diagnosis does inclu de demyelination. No mass effects are seen.No midline shift. Osseous calvarium is intact. If symptoms persist consider MRI. IMPRESSION: 1. Age related atrophic and chronic small vessel ischemic change without acute intracranial process s een at this time.
[2024-02-24 13:38] LABS: Basophils # (A) 0.1 k/uL (0-0.2); Basophils % (A) 1 %; Eosinophils # (A) 0.1 k/uL (0-0.7); Eosinophils % (A) 1 %; HCT 45.5 % (34.0-46.0); HGB 14.3 gm/dL (11.4-16.0); Lymphocytes # (A) 1.6 k/uL (1.0-4.8); Lymphocytes % (A) 17 %; MCH 28.8 pg (25.0-35.0); MCHC 31.4 g/dL (31.0-37.0); MCV 91.5 fL (80.0-100.0); Mean Platelet Volume 7.7; Monocytes # (A) 0.5 k/uL (0-1.0); Monocytes % (A) 5 %; Neutrophils # (A) 7.4 k/uL (1.3-7.7); Neutrophils % (A) 76 %; Platelet Count 251 k/uL (150-450); RBC 4.97 m/uL (3.80-5.40); RDW 12.9 % (11.5-15.5); WBC 9.8 k/uL (3.8-10.6)
[2024-02-24 13:46] LABS: INR 0.9 (<1.2); Prothrombin Time 10.1 sec (10.0-12.5)
[2024-02-24 13:58] VITALS: TEMP 98.7
--- NOTE | 2024-02-24 14:36 | CT ---
EXAMINATION TYPE: CT angio head neck DATE OF EXAM: 02/24/2024 COMPARISON: None HISTORY: CODE STROKE CT DLP: 435.2 mGycm CONTRAST: Performed without and with IV Contrast, patient injected with 65 ml mL of Isovue 370. Combination Contrast CTA cervical carotids and [place] CTA cervical carotids with 3-D recons truction Contrast CTA of the cervical carotids was performed 3-D reconstruction imaging obtained at a separate workstation. Right carotid system: Mild plaque is seen of the right common carotid artery. There is mild plaque a lso noted at the carotid bulb and proximal ICA. No significant diameter reduction. ECA is patent. Right vertebral artery appears unremarkable. Left carotid system: Mild plaque is seen of the left common carotid artery. There is mild plaque als o noted at the carotid bulb and proximal ICA. No significant diameter reduction. ECA is patent. Lef t vertebral artery appears unremarkable. IMPRESSION: 1. No significant diameter reduction to account for the patient's symptoms. CTA [place] with 3-D reconstruction Contrast CTA of the [place] was performed 3-D reconstruction imaging obtained at a separate workstation. Vertebrobasilar system as well as intracranial portions of the internal carotid arteries and their ma reji tributaries are patent. I do not see evidence for sizable aneurysm or vascular malformation. Pl ease note MRI provides greater sensitivity and specificity. Visualized brain appears grossly unremar kable. IMPRESSION: 1. No significant abnormality. NASCET criteria was used in interpretation of this exam?
--- NOTE | 2024-02-24 15:26 | XR ---
EXAMINATION TYPE: XR chest 2V DATE OF EXAM: 02/24/2024 COMPARISON: 09/25/2019 HISTORY: 53-year-old female confusion, altered mental status TECHNIQUE: PA and lateral views FINDINGS: Heart normal size. Aorta and pulmonary vasculature within normal limits. No consolidation or pleural effusion. Dextro convex curvature of the spine may reflect underlying scoliosis. IMPRESSION: No acute cardiopulmonary process.
[2024-02-24] MEDS: ASPIRIN 325 MG TAB PO STA (16:29)
--- NOTE | 2024-02-24 17:21 | P.HPIM ---
History of Present Illness H&P Date: 02/24/24 Patient is a 53-year-old female with history of prior TIA presenting with left- facial numbness. She claims that she has been having headaches throughout this week, and had pressure like sensation forehead, and then subsequently had facial numbness on the left side. No facial droop, no slurring of words or difficulty swallowing. Denies any arm numbness or weakness. Denies any palpitations, chest pain, shortness of breath, abdominal pain, nausea, vomiting, urinary or bowel complaints. She did have a trip to [place] 3 weeks ago, no lower extremity swelling. She denies any recent sick contacts or fevers or chills. In the ED, temperature was 98.7, pulse 80, respiratory rate 18, blood pressure 138/58, saturating at 98% on room air. CBC,, glucose 100. EKG showed sinus tachycardia. Head CT, CTA head and neck unremarkable. Chest x-ray showed no acute process. Patient being admitted for further stroke workup. Neurology consulted. Pertinent positives and negatives as discussed in HPI, a complete review of systems was performed and all other systems are negative. Patient seen and examined at bedside. Vital signs reviewed General: nontoxic, no distress, appears at stated age Derm: warm, dry Head: atraumatic, normocephalic, symmetric Eyes: EOMI, no lid lag, anicteric sclera, pupils equal round reactive to light ENT: Nose and ears atraumatic Neck: No thyromegaly, supple Mouth: no lip lesion, mucus membranes moist Cardiovascular: S1S2 reg, no murmur, no edema Lungs: clear to auscultation bilateral, no rhonchi, no rales, no wheeze, no accessory muscle use Abdominal: soft, nontender to palpation, no guarding, no appreciable organomegaly Ext: no gross muscle atrophy, muscle strength muscle strength 5 out of 5 in all 4 extremities, no contractures Neuro: Left-sided facial numbness Psych: Alert, oriented, appropriate affect Assessment/Plan: Suspected CVA versus complex migraine Left-sided facial numbness Headache -Aspirin 81 mg, atorvastatin 40 nightly -Lipid panel, TSH, B12 pending. MRI ordered, echocardiogram ordered -Neurology consulted, pending recommendations -Telemetry and neurochecks The patient is admitted with an anticipated greater than 2 midnight stay as inpatient status for evaluation of stroke. Surrogate decision-maker: Spouse CODE STATUS: Full code DVT prophylaxis: Lovenox Anticipated discharge date: Pending clinical course Anticipated discharge place: Pending clinical course A total of 55 minutes was spent on the care of this complex patient more than 50% of the time was spent in counseling and care coordination. Past Medical History Past Medical History: CVA/TIA Additional Past Medical History / Comment(s): POSSIBLE TIA-09/2019-NEVER CONFIRMED. PAST HX PANCREATITIS/COLITIS History of Any Multi-Drug Resistant Organisms: None Reported Past Surgical History: Section, Tubal Ligation Additional Past Surgical History / Comment(s): D & C Past Anesthesia/Blood Transfusion Reactions: Postoperative Nausea & Vomiting (PONV) Past Psychological History: No Psychological Hx Reported Smoking Status: Never smoker Past Alcohol Use History: None Reported Past Drug Use History: None Reported - Past Family History Mother Family Medical History: Dementia, Diabetes Mellitus Father Family Medical History: CVA/TIA, Diabetes Mellitus, Myocardial Infarction ([place]) Additional Family Medical History / Comment(s): glaucoma Medications and Allergies Home Medications Medication Instructions Recorded Confirmed Type Famotidine 40 mg PO HS 02/24/24 02/24/24 History Allergies Allergy/AdvReac Type Severity Reaction Status Date / Time ciprofloxacin [From Cipro] AdvReac Abdominal Verified 02/24/24 13:20 Pain diazepam [From Valium] AdvReac Hallucinati Verified 02/24/24 13:20 ons Physical Exam Vitals: Vital Signs Temp Pulse Resp BP Pulse Ox 02/24/24 15:15 97 20 128/74 100 02/24/24 14:45 82 20 121/73 99 02/24/24 14:15 95 20 99 02/24/24 14:00 92 20 127/78 100 02/24/24 13:45 88 20 130/56 97 02/24/24 13:30 87 18 119/80 99 02/24/24 13:15 93 20 124/58 99 02/24/24 12:50 98.7 F 80 18 138/58 98 Intake and Output 02/24/24 02/24/24 02/24/24 06:59 14:59 22:59 Other: Weight 74.843 kg Results CBC & Chem 7: 02/24/24 13:06 02/24/24 13:06 Labs: Abnormal Lab Results - Last 24 Hours (Table) 02/24/24 Range/Units 13:06 Glucose 100 H (74-99) mg/dL
[2024-02-24] MEDS: ATORVASTATIN 40 MG TAB PO SCH (20:07)
[2024-02-24] MEDS: FAMOTIDINE 20 MG TAB PO SCH (20:08)
[2024-02-25] MEDS: ENOXAPARIN 40 MG/0.4 ML SYRINGE SQ SCH (08:06)
[2024-02-25] MEDS: ASPIRIN 81 MG PO SCH (08:06)
[2024-02-25 08:57] VITALS: RESP 18
[2024-02-25] MEDS ORDERED: ASPIRIN 325 MG TAB PO SCH (09:00)
--- NOTE | 2024-02-25 09:54 | P.CNNES ---
History of Present Illness Consult date: 02/24/24 Requesting physician: Carlito De Luna Reason for Consult: CVA History of Present Illness: Patient is a 53-year-old right-handed female with history of mild hyperlipidemia, history of possible TIA 4 years ago, came to the hospital today at 12:45 PM with focal neurological symptoms. Patient states she woke up this morning at around 7:10 AM and was feeling fine. Around 11 AM, she started having pressure in the head, pointing to the forehead region. Around the same time, she also noticed some tingling in the periorbital region, that started extending to the left cheek and the jaw region. There was no slurred speech, facial droop, focal weakness tingling numbness. She did have very transient left arm tingling, that moved around, and went away very shortly. She panicked, took 4 baby aspirin's, and decided to come to the ER. Vital signs on arrival blood pressure 138/58, pulse rate 80 temperature 98.7. EKG shows sinus tachycardia. CT head revealed age-related atrophic and chronic small vessel ischemic change without acute intracranial process seen at this time. I personally reviewed CT head, I do not see any significant small vessel disease as reported. Blood test shows normal CBC, PT PTT, normal CMP. Troponin, CK are normal. Stroke code was activated.. Her NIH stroke scale was 1. She did not receive TNK, as risks significantly outweigh the benefits, as her symptoms were very mil d. Patient states that when she came back from CT, her symptoms started improving. Patient states that initially she was feeling numbness of the left facial region without touching, but later only when she was touching the face and now she can barely feel the symptoms. Patient's symptoms almost went away. Patient states that she has history of TIA 4 years ago on 09/25/2019, in which she woke up, and did not know the name, and lost memory, that lasted for couple hours. She was seen by Dr. Romano and subsequently by Dr. Rucker, and was felt to have transient global amnesia. MRI of the brain without contrast did not show any acute or old stroke but showed 2 distinct but punctate hyperintensity on T2 flair. Patient was not discharged on any antiplatelets. Patient subsequently followed up with Dr. Chiu office, underwent spinal fluid examination, which came back negative for multiple sclerosis. Patient denies any personal or family history of migraines. Patient denies any history of tobacco, alcohol use, marijuana, any diabetes. Patient does not take any medication at home. She used to take Crestor but used to produce some body aches. She tried Celebrex to counteract it, but after she stopped Crestor, the body aches went away. At present she does not take any medication. Review of Systems Constitutional: Denies chills, Denies fever Eyes: denies blurred vision, denies decreased vision, denies pain, denies loss of vision Ears: deny: decreased hearing, ear discharge Ears, nose, mouth and throat: Reports headache, Denies sore throat, Denies vertigo Cardiovascular: Denies chest pain, Denies lightheadedness, Denies shortness of breath Respiratory: Denies cough, Denies excessive sputum Gastrointestinal: Denies abdominal pain, Denies diarrhea, Denies nausea, Denies vomiting Genitourinary: Denies dysuria, Denies hematuria, Denies stress incontinence, Denies urge incontinence, Denies urgency Musculoskeletal: Denies low back pain, Denies myalgias, Denies neck pain Musculoskeletal: right: hip pain, shoulder pain Integumentary: Denies pruritus, Denies rash Neurological: Reports as per HPI Psychiatric: Denies anxiety, Denies depression Hematologic/Lymphatic: Denies easy bleeding, Denies easy bruising Past Medical History Past Medical History: CVA/TIA Additional Past Medical History / Comment(s): POSSIBLE TIA-09/2019-NEVER CONFIRMED. PAST HX PANCREATITIS/COLITIS History of Any Multi-Drug Resistant Organisms: None Reported Past Surgical History: Section, Tubal Ligation Additional Past Surgical History / Comment(s): D & C Past Anesthesia/Blood Transfusion Reactions: Postoperative Nausea & Vomiting (PONV) Past Psychological History: No Psychological Hx Reported Smoking Status: Never smoker Past Alcohol Use History: None Reported Past Drug Use History: None Reported - Past Family History Mother Family Medical History: Dementia, Diabetes Mellitus Father Family Medical History: CVA/TIA, Diabetes Mellitus, Myocardial Infarction ([place]) Additional Family Medical History / Comment(s): glaucoma Medications and Allergies Home Medications Medication Instructions Recorded Confirmed Type Famotidine 40 mg PO HS 02/24/24 02/24/24 History Allergies Allergy/AdvReac Type Severity Reaction Status Date / Time ciprofloxacin [From Cipro] AdvReac Abdominal Verified 02/24/24 13:20 Pain diazepam [From Valium] AdvReac Hallucinati Verified 02/24/24 13:20 ons Physical Examination - Vital Signs Vital Signs: Vital Signs Temp Pulse Resp BP Pulse Ox 02/24/24 17:32 77 18 121/74 99 02/24/24 16:45 87 18 124/81 100 02/24/24 15:45 97 18 128/74 100 02/24/24 15:15 97 20 128/74 100 02/24/24 14:45 82 20 121/73 99 02/24/24 14:15 95 20 99 02/24/24 14:00 92 20 127/78 100 02/24/24 13:45 88 20 130/56 97 02/24/24 13:30 87 18 119/80 99 02/24/24 13:15 93 20 124/58 99 02/24/24 12:50 98.7 F 80 18 138/58 98 Intake and Output 02/24/24 02/24/24 02/24/24 06:59 14:59 22:59 Other: Weight 74.843 kg Patient is a middle aged female, very pleasant, in no acute distress. Patient is alert awake oriented to time place and person. Speech and language functions are normal. Patient can name and repeat very well. No aphasia or dysarthria. Attention, concentration and fund of knowledge is adequate. On cranial nerve examination, pupils are equal, round and reacting to light, visual fan are full on confrontation, with no neglect on double simultaneous stimulation. Extraocular muscles are intact with no nystagmus. Face is symmetric, tongue protrudes to the midline. Palatal elevation and sensation normal, hearing and shoulder shrug normal, facial sensation normal. On muscle strength testing, there is no pronator drift and the strength is normal in arms and legs distally and proximally. Deep tendon reflexes are symmetric biceps 1+, brachioradialis 1+, knees 1+, plantars are downgoing bilaterally. Sensory to touch is equal with no neglect on double simultaneous stimulation. Cerebellar function showed no ataxia for [id number] testing. No dysdiadochokinesia. No ataxia for [id number] testing on either side. Tone and bulk of muscles normal. Gait deferred.. On general examination, there is no carotid bruit or murmur, S1-S2 audible. Chest is clear on consultation. Abdomen is soft nontender. No organomegaly, bowel sounds present. Peripheral pulses are present. No peripheral edema. Results - Laboratory Findings CBC and BMP: 02/24/24 13:06 02/24/24 13:06 Abnormal Lab Findings: Abnormal Labs 02/24/24 13:06 Glucose 100 H Assessment and Plan Assessment: * Transient left facial numbness that has now almost resolved in 5 to 6 hours. Differential includes TIA, complex migraine (no previous personal or family history of migraines), versus transient neuritis (trigeminal). * History of possible TIA (transient global amnesia) 09/25/2019. * Dyslipidemia Plan: * Patient's symptoms have mostly resolved. * CTA of head and neck revealed no significant diameter reduction to account for the patient's symptoms. No aneurysm or stenosis. * Fasting lipid panel * Hemoglobin A1c * 2D echo with bubble study. * Start aspirin 81 mg daily. * Thank you for the consult.
--- NOTE | 2024-02-25 11:22 | CA ---
Transthoracic Echo Report Name: Bobbi Castillo Age: 53 Gender: F : 1970 Exam Date: 02/25/2024 08:37 Exam Location: [facility] Ht (in): 65 Wt (lb): 165 Ordering Physician: Jose Encarnacion MD Attending/Referring Phys: Band Tier Jessica Martínez RDCS Procedure CPT: Indications: stroke Cardiac Hx: Technical Quality: Excellent Contrast 1: Agitated Saline Total Dose (mL): 9 Contrast 2: Total Dose (mL): MEASUREMENTS (Male / Female) Normal Values 2D ECHO LV Diastolic Diameter PLAX 4.2 cm 4.2 - 5.9 / 3.9 - 5.3 cm LV Systolic Diameter PLAX 2.4 cm IVS Diastolic Thickness 0.9 cm 0.6 - 1.0 / 0.6 - 0.9 cm LVPW Diastolic Thickness 0.9 cm 0.6 - 1.0 / 0.6 - 0.9 cm LV Relative Wall Thickness 0.4 RV Internal Dim ED PLAX 2.9 cm LA Systolic Diameter LX 3.0 cm 3.0 - 4.0 / 2.7 - 3.8 cm LV Diastolic Volume MOD 4C 76.4 cm??? LV Systolic Volume MOD 4C 37.3 cm??? LV Ejection Fraction MOD 4C 51.2 % LV Cardiac Index MOD 4C 1192.9 cm???/min???m??? LV Diastolic Length 4C 7.9 cm LV Systolic Length 4C 6.1 cm LV Diastolic Volume MOD 2C 68.3 cm??? LV Systolic Volume MOD 2C 29.9 cm??? LV Ejection Fraction MOD 2C 56.3 % LV Cardiac Index MOD 2C 1171.9 cm???/min???m??? LV Diastolic Length 2C 7.8 cm LV Systolic Length 2C 6.6 cm LA Volume 33.4 cm??? 18 - 58 / 22 - 52 cm??? LA Volume Index 17.8 cm???/m??? 16 - 28 cm???/m??? M-MODE Aortic Root Diameter MM 2.7 cm MV E Point Septal Separation 0.4 cm AV Cusp Separation MM 1.8 cm DOPPLER AV Peak Velocity 87.0 cm/s AV Peak Gradient 3.0 mmHg MV Area PHT 2.5 cm??? Mitral E Point Velocity 63.2 cm/s Mitral A Point Velocity 57.2 cm/s Mitral E to A Ratio 1.1 MV Deceleration Time 299.9 ms TR Peak Velocity 216.4 cm/s TR Peak Gradient 18.7 mmHg Right Ventricular Systolic Press 23.4 mmHg FINDINGS Left Ventricle Left ventricular ejection fraction is estimated at 55-60 %. Left ventricular cavity size normal. Left ventricular wall thickness normal. Normal left ventricular wall motion. Right Ventricle Normal right ventricular size and function. Right ventricular systolic pressure within normal limits. Right Atrium Normal right atrial size. No right atrial thrombus or mass seen. Negative agitated saline bubble study for right to left shunt. Left Atrium Normal left atrial size. No left atrial thrombus or mass present. Mitral Valve Structurally normal mitral valve. No mitral stenosis, regurgitation or prolapse. Aortic Valve Trileaflet aortic valve. No aortic valve stenosis or regurgitation. Tricuspid Valve Structurally normal tricuspid valve. Mild tricuspid regurgitation. Pulmonic Valve Structurally normal pulmonic valve. No pulmonic regurgitation. Pericardium No pericardial effusion. No pleural effusion. Aorta Normal size aortic root and proximal ascending aorta. CONCLUSIONS 1. Normal left ventricular size and systolic function 2. No evidence of shunting by color Doppler study or bubble study 3. Mild tricuspid regurgitation with no evidence of pulmonary hypertension Previewed by: Dr. Mariya Reeves MD (Electronically Signed) Final Date: 25 Feb 2024 11:20
--- NOTE | 2024-02-25 12:17 | P.DS ---
Providers Date of admission: 02/24/24 15:43 Expected date of discharge: 02/25/24 Attending physician: Jose Encarnacion MD Consults: 02/24/24 15:53 Consult Physician Routine Consulting Provider: Giovanny Zuniga Consult Reason/Comments: CVA Do you want consulting provider notified?: Yes Primary care physician: [facility] Course: Discharge Diagnosis: Transient ischemic attack History of TIA Left-sided facial numbness Headache Hospital Course: 53-year-old female with history of prior TIA presenting with left-facial numbness. In the ED, temperature was 98.7, pulse 80, respiratory rate 18, blood pressure 138/58, saturating at 98% on room air. Labs unremarkable. EKG showed sinus tachycardia. Head CT, CTA head and neck unremarkable. Chest x-ray showed no acute process. Patient being admitted for further stroke workup. Neurology consulted. Echocardiogram did not show any interatrial shunt, normal LV size and systolic function. No numbness at the time of discharge. Being discharged with an event monitor for 30 days. Follow-up with PCP and neurology. Continue aspirin and statin. Patient seen and examined at bedside. Vital signs reviewed and stable. General: Nontoxic, no distress, appears at stated age Derm: Warm, dry Head: Atraumatic, normocephalic, symmetric Eyes: EOMI, no lid lag, anicteric sclera Mouth: No lip lesion, mucus membranes moist Cardiovascular: S1S2 reg, no murmur Lungs: CTA bilateral, no rhonchi, no rales, no accessory muscle use Abdominal: Soft, nontender to palpation, no guarding, no appreciable organomegaly Ext: No gross muscle atrophy, no edema, no contractures Neuro: CN II-XI grossly intact, no focal neuro deficits Psych: Alert, oriented, appropriate affect A total of 33 minutes of time were spent preparing this complex discharge summary. Patient was discharged on 02/25/2024 at 1146. Patient Condition at Discharge: Stable Plan - Discharge Summary New Discharge Prescriptions: New Aspirin [Adult Low Dose Aspirin EC] 81 mg PO DAILY #90 tab Atorvastatin [Lipitor] 40 mg PO HS #90 tab Continue Famotidine 40 mg PO HS Discharge Medication List Famotidine 40 mg PO HS 02/24/24 [History] Aspirin [Adult Low Dose Aspirin EC] 81 mg PO DAILY #90 tab 02/25/24 [Rx] Atorvastatin [Lipitor] 40 mg PO HS #90 tab 02/25/24 [Rx] Follow up Appointment(s)/Referral(s): Darian Vazquez MD [REFERRING] - 1 Week Lyndon Clinton DO [Primary Care Provider] - 1-2 days Patient Instructions/Handouts: Transient Ischemic Attack (DC) Activity/Diet/Wound Care/Special Instructions: Follow up with neurology and PCP. Discharge Disposition: HOME SELF-CARE
[2024-02-25 13:37] VITALS: BP 117/68; PULSE 87
[2024-02-26 01:58] LABS: LDL Cholesterol,Calculated 119.2 mg/dL (0.0-131.0)
== END 2024-02-25 16:11 | disposition home or self-care (01) | DRG 69 ==
LOC: EC 12:45 → 3SCARD 15:43
PROVIDERS: ADMIT Student in an Organized Health Care Education/Training Program; ATTEND Student in an Organized Health Care Education/Training Program
DX: G45.9 Transient cerebral ischemic attack, unspecified (principal); E11.9 Type 2 diabetes mellitus without complications; E78.5 Hyperlipidemia, unspecified; Z79.899 Other long term (current) drug therapy; Z86.73 Personal history of transient ischemic attack (TIA), and cerebral infarction without residual deficits; Z88.1 Allergy status to other antibiotic agents; Z88.8 Allergy status to other drugs, medicaments and biological substances
CPT/HCPCS: 36415; 70450; 70496; 70498; 71046; 80053; 80061; 82550; 82607; 83036; 84443; 84484; 85025; 85610; 85730; 93005; 93270; 93306; 96361; 96372; 96374; 99291

== ENCOUNTER → 2024-08-11 | Outpatient (CLI) | payer BC ==
[2024-08-11 10:25] VITALS: BP 111/77; PULSE 70; RESP 16
--- NOTE | 2024-08-11 14:33 | P.PAINPG ---
Objective - Vital Signs Vital signs: Intake & Output 08/10/24 08/11/24 08/11/24 18:59 06:59 18:59 Weight 79.379 kg PQRS Measure Charge Sheet Comment: HISTORY OF PRESENT ILLNESS: A 54 yr old female w at side as a referral from Dr Harrison De La Rosa presents today w severe and chronic LBP > 1 yr secondary to radiculopathy, spondylosis and facet arthropathy without myelopathy for evaluation. Pt states pain level is provoked at 6 /10 in intensity, constant, localized in the mid to lower lumbar spine, predominantly axial, sharp in character w occasional shooting pain towards the BL hips. Pain is provoked by climbing stairs. Pain is alleviated by PT x 6 wks which ended in May 2024, physician guided home exercises 4-5 times weekly since May 2024, medications (Celebrex, Tyl), heat, ice, topical BioFreeze, repositioning and rest . PMH: OA, CVA, Hyperlipidemia, Hx of Pancreatitis, Glaucoma PSH: , Tubal Ligation, D&C SH: Negative x3 FH: Mo- DM. Fa- CVA, NC. All: See list Meds: See list REVIEW OF ORGAN SYSTEMS: CONSTITUTIONAL: No fevers or chills. No recent weight loss. NEUROLOGICAL: + numbness and tingling along the distal extremities. No seizure disorders or headaches. MUSCULOSKELETAL: + pain PSYCHIATRIC: Denies current depression or suicidal thoughts. Physical Examinations : Constitutional : Cooperative , not in acute distress . Neurologic : Cranial nerve II to XII intact. No focal neurological deficits. Psychiatric : alert & oriented x 3. Matching mood & appropriate affect. Judgment & insight intact. Musculoskeletal : Cervical Spine Motor strength in the deltoid and biceps: Normal right side. Normal Left side Motor strength biceps and the wrist extensors: Normal right side . Normal left side Motor strength in the triceps muscle: Normal right side. Normal left side Deep tendon reflexes: Normal at the biceps. Normal at Brachioradialis. Normal at triceps Vertebral body tenderness to deep palpation over Cervical facet loading test: positive bilaterally Spurling test: positive bilaterally Neck distraction test: positive bilaterally Tom sign: positive bilaterally Lumbar spine Motor strength lower extremities ,thigh and legs 5/5 Right side , 5/5 Left side Deep tendon reflexes : Normal Knee Jerk. Normal Ankle Jerk Vertebral body tenderness over L4 Sanders Test positive BL L4-L5 Lumbar facet Loading Test: positive Right / positive Left Range of motion of the lumbar spine Flexion 30 degrees, extension 10 degrees Straight Leg Raise test: Left/ Right positive at degrees Peter test: positive right / positive left. Severe tenderness over the Sacroiliac joint on the Right / Left sides Gaenslen test: positive bilaterally Seated flexion test: positive bilaterally. Sacral spine : Severe tenderness over the Sacroiliac joint: right side / left side Range of motion: Flexion of the lumbar spine <60 degrees Range of motion: Extension of the lumbar spine <20 degrees Gaenslen's Test positive Peter test: positive right side / left side Thigh Thrust Test Sacral Thrust Test Imaging: MRI non contrast lumbar spine from 01/25/23 reviewed Assessment/ Plan : L2-S1 radiculopathy Recommendation of CHERELLE L4-L5 #1. Risks, benefits of procedure discussed and patient verbalized understanding. Admits to anti- coagulant use or medical history of diabetes. Protocol for discontinuation/ continuation of medications cirilo procedure discussed. Ativan 1mg x1 1hr prior to procedure. Use, side effects, adverse reactions, safe storage discussed. All questions answered. I have spent greater than 30 minutes on patient care today. Dr Gramajo was available by phone for the evaluation of this patient. The time was used to review the medical records including relevant urine studies and Prescription history (MAPs), review of the available imaging, evaluation and examination of the patient, coordination of care with the medical staff and if applicable referring physicians, as well as creation of the medical record - Pain Location Lower Back Non-Pharmacological Interventions: Chiropractic Treatment, Heat, Ice, Massage, Physical Therapy Pharmacological Interventions: Medication, Topical Medication PQRS Narrative: Smoking Status Never smoker Home Medications: Ambulatory Orders Famotidine 40 mg PO HS 02/24/24 Aspirin [Adult Low Dose Aspirin EC] 81 mg PO DAILY #90 tab 02/25/24 Atorvastatin [Lipitor] 40 mg PO HS #90 tab 02/25/24 LORazepam [Ativan] 1 mg PO DAILY PRN 1 Days #1 tab 08/11/24 Controlled Substance Measures - Controlled Substance Measures Is patient prescribed a controlled substance at discharge?: Yes When asked, does pt state using other controlled substances?: Yes If prescribed controlled substance>3 days was MAPS reviewed?: Prescribed <3 Days
== END ==
LOC: PNWHC3 09:51
PROVIDERS: ATTEND Specialist
DX: M54.51 Vertebrogenic low back pain
CPT/HCPCS: 99211

== ENCOUNTER 2024-09-21 09:59 | Day surgery (SDC) | payer BC ==
[2024-09-17 14:56] VITALS: BMI 29.1
[2024-09-21] MEDS ORDERED: LACTATED RINGERS 1,000 ML IV SCH (11:43)
[2024-09-21] MEDS: LORazepam 1 MG TAB PO STA (12:05)
[2024-09-21 12:08] VITALS: RESP 16; TEMP 98.6
[2024-09-21] MEDS ORDERED: methylPREDNISolone ACETATE 80 MG/ML 1 ML VIAL ONE (12:22)
[2024-09-21] MEDS ORDERED: IOPAMIDOL M300 15ML VIAL ONE (12:22)
[2024-09-21 12:42] VITALS: PULSE 72
--- NOTE | 2024-09-21 12:42 | P.PCN ---
Description of Procedure: PREOPERATIVE DIAGNOSIS: 1- Lumbar Degenerative Disc Diseases 2-Lumbar spondylosis with Facet arthropathy without myelopathy. 3-lumbar spinal stenosis POSTOPERATIVE DIAGNOSIS: 1-lumbar degenerative disc disease. 2-lumbar spondylosis with facet arthropathy without myelopathy. 3-lumbar spinal stenosis. PROCEDURE Injection of radio contrast material into L4-5 interspace, interpretation of epidurogram, injection of steroid at L4- 5 epidural space under fluoroscopic guidance. ANESTHESIA: Lidocaine 1% subcutaneously. In OR continuous pulse ox, EKG, blood pressure and verbal communication was maintained with the patient. EBL: Minimal PROCEDURE INDICATION: Before the procedure were discussed with the patient detailed procedure, alternatives, complications including infection, bleeding, nerve damage, paralysis all of which could be permanent. Patient understands and all questions were answered. PROCEDURE DESCRIPTION : After getting consent, patient in OR in prone position. Back was prepped with chlorhexidine and draped in sterile fashion. After injecting 10 mL of 1% lidocaine subcutaneously, a 20-gauge Tuohy needle was introduced at L4 5 interspace with loss of resistance technique using a syringe filled with air. Negative CSF, negative blood, negative paresthesia. Needle position was confirmed with AP and lateral view of the fluoroscope. After repeat negative aspiration 2 mL of Omnipaque 200 water soluble contrast was injected. Contrast was noted in the epidural space. No contrast was noted into intrathecal or intravascular space. After repeat negative aspiration 6 mL solution was injected intermittently which consists of 5 mL of preservative-free normal saline mixed with 1 mL of 80 mg Depo-Medrol. Needle was withdrawn intact. Skin was cleansed and Band-Aids was applied. DISPOSITION / PLANS: The patient tolerated the procedure well. No complication. The patient was placed in a supine position and transferred to the recovery area in a stable condition for observation. There was no evidence of lower extremity motor or sensory deficit after the procedure. Patient was discharged from the recovery room after meeting discharge criteria. Home discharge instructions were given to the patient by the staff. The patient was reexamined prior to discharge. The patient will schedule a follow up in the clinic in 2-4 weeks.
--- NOTE | 2024-09-21 12:51 | FL ---
Fluoroscopy INDICATION: Pain FINDINGS: Fluoroscopy time: 9.3 seconds. Total dose area product (DAP) in uGy*m?, mGy*cm? (or similar): 0.42086 Images obtained: 3. Images demonstrate a needle directed towards posterior spinal canal IMPRESSION: 1. Documentation of fluoroscopy. [facility] , 09/21/2024 12:48 PM
[2024-09-21 13:04] VITALS: BP 104/59
== END 2024-09-21 13:11 | disposition home or self-care (01) ==
LOC: ORPAIN 09:59
PROVIDERS: ATTEND Pain Medicine Interventional Pain Medicine
DX: M51.369 Other intervertebral disc degeneration, lumbar region without mention of lumbar back pain or lower extremity pain (principal); M47.816 Spondylosis without myelopathy or radiculopathy, lumbar region; M48.061 Spinal stenosis, lumbar region without neurogenic claudication
CPT/HCPCS: 81025; 62323; Q9967; J1010

== ENCOUNTER → 2024-10-21 | Outpatient (CLI) | payer BC ==
--- NOTE | 2024-10-21 15:09 | XR ---
EXAMINATION TYPE: XR chest 2V DATE OF EXAM: 10/21/2024 2:52 PM COMPARISON: Chest x-ray February 24, 2024 CLINICAL INDICATION: Female, 54 years old with history of R0602 SOB, TECHNIQUE: Frontal and lateral views of the chest are obtained. FINDINGS: There is no focal air space opacity, pleural effusion, or pneumothorax seen. The cardiac silhouette size is within normal limits. Dextroconvex scoliosis centered in the midthoracic spine i s redemonstrated. IMPRESSION: No acute cardiopulmonary process. No significant change from prior. [facility], , 10/21/2024 3:06 PM
== END | disposition home or self-care (01) ==
LOC: RADXRYALE 13:51
PROVIDERS: ATTEND Physician Assistant
DX: R06.02 Shortness of breath (principal)
CPT/HCPCS: 71046

== ENCOUNTER 2024-12-21 09:59 | Day surgery (SDC) | payer BC ==
[2024-12-17 11:16] VITALS: BMI 29.9
[2024-12-21 10:38] VITALS: RESP 16; TEMP 98
[2024-12-21] MEDS ORDERED: LIDOCAINE 1% INJ 10MG/ML (20 ML MDV) ONE (10:59)
[2024-12-21] MEDS ORDERED: DEXAMETHASONE SOD PHOSPHATE 10 MG/ML 1 ML VIAL ONE (10:59)
[2024-12-21] MEDS ORDERED: IOPAMIDOL M300 15ML VIAL ONE (10:59)
--- NOTE | 2024-12-21 11:25 | P.PCN ---
Description of Procedure: PREOPERATIVE DIAGNOSIS: 1-Lumbar radiculopathy . 2-lumbar degenerative disc disease. 3-lumbar spondylosis with lumbar facet arthropathy without myelopathy POSTOPERATIVE DIAGNOSIS: 1-lumbar radiculopathy. 2-lumbar degenerative disc disease. 3-lumbar spondylosis with facet arthropathy without myelopathy PROCEDURE 1. Transforaminal epidural steroid injection under fluoroscopic guidance at BILATERAL L5-S1 level. (Fluoroscopy images stored on file in the radiology Department ) 2. Lumbar epidurogram . ANESTHESIA: Local with 1% lidocaine 5 ml. subcutaneously. Continuous pulse ox, EKG, blood pressure and verbal communication was maintained with the patient. EBL: Minimal PROCEDURE INDICATION: The patient with low back pain and radiculopathy symptoms unresponsive to conservative treatment. The patient was seen and identified in the preoperative area. Risks, benefits, complications, and alternatives were discussed with the patient. The patient agreed to proceed with the procedure and signed the consent. IV was started, and vital signs were stable. PROCEDURE DESCRIPTION / TECHNIQUE: After getting consent, patient was taken to the OR and time out was completed. The patient was placed in the prone position on procedure table and a pillow was placed under the abdomen to reduce lumbar lordosis. The lumbosacral area was prepped and draped in the usual sterile fashion. Critical pause was taken. After injecting 5 mL of plain 1% lidocaine subcutaneously, under oblique view of the fluoroscope, a 22-gauge spinal needle was introduced under the tunnel view of the fluoroscope on the RIGHT side and the needle was advanced so that the tip of the needle was at the posterior inferior quadrant of the intervertebral for amen at the lateral view of the fluoroscope and in the lateral third of the facet column in the AP view of the fluoroscope. Negative CSF, negative blood, negative paresthesia. After needle position confirmation by AP and cross table lateral view, 3 mL of Isovue-M 200 contrast was injected under continuous fluoroscope. No contrast was noted in the intrathecal or intravascular space. The epidurogram was noted. Again after repeated negative aspiration 2.5 mL solution was injected which consists 1 mL of normal saline mixed with 1.5 mL of 15 mg dexamethasone. Needle was removed . Same procedure was repeated at the LEFT side at same level , using contrast under continuous fluoroscopy and using same amount of dexamethasone. At the end of the procedure, skin was cleansed, and bandages were applied. DISPOSITION / PLANS: No complication. The patient tolerated the procedure well. The patient was placed in a supine position and transferred to the recovery area in a stable condition for observation. There was no evidence of lower extremity motor or sensory deficit after the procedure. Patient was discharged from the recovery room after meeting discharge criteria. Home discharge instru ctions were given to the patient by the staff. The patient was reexamined prior to discharge.
--- NOTE | 2024-12-21 11:45 | FL ---
EXAMINATION TYPE: FL guided pain mgmt statistic DATE OF EXAM: 12/21/2024 11:28 AM COMPARISON: Pre Operative Images if available both CT/MRI or plain film CLINICAL INDICATION: Female, 54 years old with history of Transforaminal Inj; TECHNIQUE: FL guided pain mgmt statistic, multiple fluoroscopic images provided for procedure. DAP: 0.91810 mGym2 Gycm2 uGym2 cGycm2 or equivalent. FINDINGS: Fluoroscopic images during injection for pain management demonstrate multilevel degeneration changes throughout the spine. No evidence for fracture. No acute process identified. IMPRESSION: 1. No evidence for intraoperative complication. 2. Please see the operative/procedural note for further details. [facility], , 12/21/2024 11:43 AM
[2024-12-21 11:57] VITALS: BP 116/80; PULSE 74
== END 2024-12-21 11:58 | disposition home or self-care (01) ==
LOC: ORPAIN 09:59
PROVIDERS: ATTEND Pain Medicine Interventional Pain Medicine
DX: M47.26 Other spondylosis with radiculopathy, lumbar region (principal); Z88.1 Allergy status to other antibiotic agents
CPT/HCPCS: 81025; 64483; J1100; J2003; Q9967

== ENCOUNTER → 2025-01-19 | Outpatient (CLI) | payer BC ==
--- NOTE | 2025-01-19 13:32 | MM ---
Reason for Exam: Screening (asymptomatic). Last mammogram was performed 1 year(s) and 5 month(s) ago. Patient History: Menarche at age 12. First Full-Term at age 18. Premenopausal. Patient has history of breast feeding. Maternal grandmother had breast cancer, age 80. Maternal cousin had breast cancer, age 46. Maternal aunt had breast cancer, age 50. Risk Values: Maddie 5 year model risk: 0.9%. NCI Lifetime model risk: 6.8%. Prior Study Comparison: 01/12/2021 Right Diagnostic Mammogram, [facility]. 04/04/2022 Bilateral MG 3D screening mammo w/cad, [facility]. 08/20/2023 Bilateral MG 3D screening mammo w/cad, [facility]. Tissue Density: The breasts are heterogeneously dense, which may obscure small masses. Findings: Analyzed By CAD. Unchanged bilateral areas of asymmetric density. There is no suspicious group of microcalcifications or new suspicious mass in either breast. Overall Assessment: Benign, BI-RAD 2 Management: Screening Mammogram of both breasts in 1 year. Patient should continue monthly self-breast exams. A clinical breast exam by your physician is recommended on an annual basis. This exam should not preclude additional follow-up of suspicious palpable abnormalities. Note on Maddie scores and lifetime risk: 1. A Maddie score greater than 3% is considered moderate risk. If this is the case, consider specialist referral to assess eligibility for a risk reducing agent. 2. If overall lifetime risk for the development of breast cancer is 20% or higher, the patient may qualify for future screening with alternating mammogram and breast MRI. [facility], , 01/19/2025 1:29 PM. Electronically signed and approved by: Noni Toribio M.D. Radiologist
== END | disposition home or self-care (01) ==
LOC: RADMAMWWP 10:05
PROVIDERS: ATTEND Obstetrics & Gynecology
DX: Z12.31 Encounter for screening mammogram for malignant neoplasm of breast (principal); R92.333 Mammographic heterogeneous density, bilateral breasts; Z80.3 Family history of malignant neoplasm of breast
CPT/HCPCS: 77063; 77067

== ENCOUNTER → 2025-01-19 | Outpatient (CLI) | payer BC ==
[2025-01-19 11:02] VITALS: BP 112/72; PULSE 58; RESP 16; TEMP 98.2
--- NOTE | 2025-01-19 11:42 | XR ---
EXAMINATION TYPE: XR Hip Complete LT DATE OF EXAM: 01/19/2025 CLINICAL INDICATION: Female, 54 years old with history of M16.10 UNILATERAL PRIMARY OSTEOARTHRITIS, U , Pain TECHNIQUE: AP and frogleg views of the left hip are obtained. COMPARISON: CT abdomen and pelvis 2018. FINDINGS: There is no acute fracture/dislocation evident in the left hip. Persistent [id number] e axial joint space loss and acetabular spurring in the left hip. Femoral head shape is maintained. T ubal ligation clips and phleboliths in the pelvis are redemonstrated. IMPRESSION: As above. [facility], , 01/19/2025 11:40 AM
--- NOTE | 2025-01-19 15:09 | P.PAINPG ---
PQRS Measure Charge Sheet Comment: HISTORY OF PRESENT ILLNESS: A 54 yr old female w at side presents today w severe and chronic LBP > 1 yr secondary to radiculopathy, spondylosis and facet arthropathy without myelopathy for evaluation s/p BL TFESI L5-S1 #2. Pt states she experienced 0 % pain relief s/p procedure. Pt states pain level is provoked at 6 /10 in intensity, constant, localized in the BL hips, predominantly axial, sharp in character without shooting pain. Pain is provoked by climbing stairs. Pain is alleviated by PT x 6 wks (lumbar, hips) which ended in May 2024, physician guided home exercises 4-5 times weekly (lumbar, hips) since May 2024, massage therapy semi monthly since 2022 which she is currently in, chiropractic treatments semi monthly x 1 yr which ended in 2023 due to ineffectiveness, medications, heat, ice, topical, repositioning and rest . Interventional procedures include CHERELLE L4-L5 x1, BL TFESI L5-S1 x1 Medications include Celebrex, Tyl, BioFreeze REVIEW OF ORGAN SYSTEMS: CONSTITUTIONAL: No fevers or chills. No recent weight loss. NEUROLOGICAL: + numbness and tingling along the distal extremities. No seizure disorders or headaches. MUSCULOSKELETAL: + pain PSYCHIATRIC: Denies current depression or suicidal thoughts. Physical Examinations : Constitutional : Cooperative , not in acute distress . Neurologic : Cranial nerve II to XII intact. No focal neurological deficits. Psychiatric : alert & oriented x 3. Matching mood & appropriate affect. Judgment & insight intact. Musculoskeletal : Cervical Spine Motor strength in the deltoid and biceps: Normal right side. Normal Left side Motor strength biceps and the wrist extensors: Normal right side . Normal left side Motor strength in the triceps muscle: Normal right side. Normal left side Deep tendon reflexes: Normal at the biceps. Normal at Brachioradialis. Normal at triceps Vertebral body tenderness to deep palpation over Cervical facet loading test: positive bilaterally Spurling test: positive bilaterally Neck distraction test: positive bilaterally Tom sign: positive bilaterally Lumbar spine +BL Trendelenburg Motor strength lower extremities ,thigh and legs 5/5 Right side , 5/5 Left side Deep tendon reflexes : Normal Knee Jerk. Normal Ankle Jerk Vertebral body tenderness over L5 Sanders Test positive R> L L5- S1 Lumbar facet Loading Test: positive Right / positive Left Range of motion of the lumbar spine Flexion 30 degrees, extension 10 degrees Straight Leg Raise test: Left/ Right positive at degrees Peter test: positive right / positive left. Severe tenderness over the Sacroiliac joint on the Right / Left sides Gaenslen test: positive bilaterally Seated flexion test: positive bilaterally. Sacral spine : Severe tenderness over the Sacroiliac joint: right side / left side Range of motion: Flexion of the lumbar spine <60 degrees Range of motion: Extension of the lumbar spine <20 degrees Gaenslen's Test positive Peter test: positive right side / left side Thigh Thrust Test Sacral Thrust Test Imaging: MRI non contrast lumbar spine from 01/25/23 reviewed Awaiting MRI non contrast R hip from Dr Harrison Assessment/ Plan : L2-S1 radiculopathy Recommendation of R Trochanteric Hip injection and L hip x ray M16.10. Risks, benefits of procedure discussed and patient verbalized understanding. Ativan 2 mg x1 1hr prior to procedure. Use, side effects, adverse reactions, safe storage discussed. All questions answered. I have spent greater than 30 minutes on patient care today. Dr Gramajo was available by phone for the evaluation of this patient. The time was used to review the medical records including relevant urine studies and Prescription history (MAPs), review of the available imaging, evaluation and examination of the patient, coordination of care with the medical staff and if applicable referring physicians, as well as creation of the medical record - Pain Location Bilateral Hip Non-Pharmacological Interventions: Heat, Ice Pharmacological Interventions: Topical Medication PQRS Narrative: Smoking Status Never smoker Hx Alcohol Use (MH) No Home Medications: Ambulatory Orders Famotidine 40 mg PO HS 02/24/24 Ascorbic Acid [Vitamin C] 500 mg PO DAILY 12/17/24 Cholecalciferol (Vitamin D3) [Vitamin D3 (50 Mcg = 2000 Iu)] 50 mcg PO DAILY 12/17/24 Ferrous Sulfate [Iron] 325 mg PO DAILY 12/17/24 LORazepam [Ativan] 2 mg PO DIRECTED 1 Days #1 tab 01/19/25 Controlled Substance Measures - Controlled Substance Measures Is patient prescribed a controlled substance at discharge?: Yes When asked, does pt state using other controlled substances?: No If prescribed controlled substance>3 days was MAPS reviewed?: Prescribed <3 Days
== END ==
LOC: PNWHC3 10:35
PROVIDERS: ATTEND Specialist
DX: M47.26 Other spondylosis with radiculopathy, lumbar region (principal); M25.852 Other specified joint disorders, left hip; M16.12 Unilateral primary osteoarthritis, left hip; Z88.1 Allergy status to other antibiotic agents; Z88.8 Allergy status to other drugs, medicaments and biological substances
CPT/HCPCS: 73502; 99212

== ENCOUNTER 2025-02-15 07:32 | Day surgery (SDC) | payer BC ==
[2025-02-07 08:43] VITALS: BMI 28.8
[2025-02-15 07:52] VITALS: RESP 16; TEMP 96.8
[2025-02-15] MEDS ORDERED: methylPREDNISolone ACETATE 80 MG/ML 1 ML VIAL ONE (08:26)
[2025-02-15] MEDS ORDERED: IOPAMIDOL M200 10 ML VIAL ONE (08:26)
[2025-02-15] MEDS ORDERED: ROPIVACAINE 5 MG/ML 30 ML VIAL ONE (08:26)
--- NOTE | 2025-02-15 08:44 | P.PCN ---
Date of Procedure: 02/15/25 Procedure(s) Performed: Description of Procedure: PREOPERATIVE DIAGNOSIS: Right hip Peritendinitis POSTOPERATIVE DIAGNOSIS: same PROCEDURES: Right intra-articular hip injection with fluoroscopy (fluoroscopy images available in the radiology Department ) ANESTHESIA: Ropivacaine 0.5% 2 mL for skin and subcu infiltration EBL: Minimal PROCEDURE INDICATION: The patient with right hip pain secondary to peritendinitis who has been unresponsive to conservative therapy. Patient here to have right hip intra-articular injection PROCEDURE DESCRIPTION / TECHNIQUE: The patient was seen and identified in the preoperative area. Risks, benefits, complications, and alternatives were discussed with the patient (including but not limited to incomplete pain relief, bleeding, infection, nerve damage, and allergies to medications), the patient agreed to proceed with the procedure and signed the consent after all questions were answered. Patient was taken to the OR and time out was completed to verify proper patient, position, laterality of pain, and allergies. Pt was placed in the Supine position.. Vital signs remained stable throughout the procedure. . The Hip and the Groin area was prepped and draped in the usual sterile fashion. Vital signs were closely monitored during the procedure. Conscious sedation was used during the procedure to decrease patient's anxiety. Using AP fluoroscopy, the femoral neck was identified, marked, and localized with Ropivacaine 0.5 % . Subsequently, a 22 gauge 5-inch spinal needle was advanced guided by fluoroscopy to the 10 o'clock position on the femoral neck until the needle was felt entering the hip capsule. then Isoview 200 2 ml dye, was injected to demonstrate an arthrogram. After negative aspiration for CSF or heme and in the absence of paresthesias, the full 6 ml ml of the block solution containing Depo-Medrol 60 mg and 5 mL of preservative-free 0.5% Ropivacaine was injected. At the end of the procedure, the skin was cleansed and bandages were applied. COMPLICATIONS: No acute complications. DISPOSITION / PLANS: The patient was placed in a supine position and transferred to the recovery area in a stable condition for observation and was discharged from the recovery room after meeting discharge criteria. Home discharge instruc tions given to the patient by the staff..
[2025-02-15 08:58] VITALS: BP 112/74; PULSE 84
--- NOTE | 2025-02-15 08:59 | FL ---
EXAMINATION TYPE: FL guided pain mgmt statistic Intraoperative/procedural fluoroscopic services were provided. CLINICAL INDICATION:Female, 54 years old with history of LARGE BURSA JOINT INJECTION; , [facility] FINDINGS: Fluoroscopic image demonstrating right hip large bursa joint injection. No radiographic evidence for complication. Total fluoroscopy time is 4.0 seconds. DAP: 0.31504 mGym2 Please see the operative/procedural note for further details. [facility], , 02/15/2025 8:57 AM
== END 2025-02-15 09:01 | disposition home or self-care (01) ==
LOC: ORPAIN 07:32
PROVIDERS: ATTEND Specialist
DX: M16.11 Unilateral primary osteoarthritis, right hip (principal); M25.551 Pain in right hip
CPT/HCPCS: 77002; 20610; J2795; Q9966; J1010